=== PATIENT | female | born 1990 | race Caucasian/White ===

== ENCOUNTER 2016-09-06 11:20 | Emergency (ER) | payer OTHER ==
[~2016-09-06] VITALS: Ht 162.6 cm; Wt 57.0 kg
[2016-09-06 11:24] VITALS: TEMP 98.2; Ht 162.6 cm; Wt 57.0 kg
--- OUTSIDE RECORDS SUMMARY | 2016-09-06 11:25 | XMS REPORT ---
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 23331947 Problem Lumbago with sciatica, right side M54.41 Active 242312613 Problem Neuropathy of left lower extremity G57.92 Active 584583801 Problem Chronic pain syndrome G89.4 Active 589182628 Problem Hereditary and idiopathic peripheral neuropathy G60.9 Active 577645077 Problem Acute left-sided low back pain with left-sided sciatica M54.42 Active 757655425 Assessment Ganglion cyst of wrist, left M67.432 Jun, Active 272798480 Assessment Tobacco abuse counseling Z71.6 Jun, Active 855924561 Assessment Sore throat J02.9 Jun, Active 484978885 Problem Situational stress F43.9 Active 15996462 Problem Cervicalgia M54.2 Active 79215818 Assessment Tobacco abuse Z72.0 Jun, Active 717780957 Problem Severe episode of recurrent major depressive disorder, without psychotic features F33.2 Active 09065378 Assessment Acute non-recurrent maxillary sinusitis J01.00 Jun, Active 71108571 Problem Fatigue, unspecified type R53.83 Active 44591060 ALLERGIES Substance Reaction Event Type Date Status PredniSONE exhaustion Drug Allergy Jun, Active Doxycycline Hyclate vomiting Drug Allergy Jun, Active SOCIAL HISTORY No smoking Hx information available PLAN OF CARE Activity Details Pending Test *Mononucleosis Test, Qual 4 Weeks,Reason: VITAL SIGNS Temperature 98.5 degrees Fahrenheit 2016-06-24 Height 62.5 in 2016-06-24 Weight 128.4 lbs 2016-06-24 Oximetry 97% on room air % 2016-06-24 BMI 23.11 kg/m2 2016-06-24 Blood pressure systolic 98 mm Hg 2016-06-24 Blood pressure diastolic 68 mm Hg 2016-06-24 MEDICATIONS Medication Instructions Dosage Frequency Start Date End Date Duration Status Ibuprofen 200 MG Orally tid 4 tablets as needed 8h Active Methocarbamol 750 MG Orally BID 1-2 tablets 12h 21 Sep, 2015 30 days Active Fetzima 40 MG Orally Once a day 1 capsule 24h 30 days Active [place] 10-325 MG Orally every 6 hrs 1 tablet as needed 6h 14 May, 2016 30 days Active Medrol 4 MG Orally daily as directed 24h Jun, 6 days Active Zithromax Z-Marcello 250 MG Orally Once a day 2 tablets on the first day, then 1 tablet daily for 4 days 24h Jun, 5 day(s) Active Neurontin 100 MG Orally Three times a day 2 capsules qhs and 1 capsule bid 8h 15 Feb, 2016 30 days Active Percocet 10-325 MG Orally TID prn 1 tablet as needed Jun, 15 days Active RESULTS No Results PROCEDURES Procedure Date Ordered Related Diagnosis Body Site HETEROPHILE ANTIBODIES June 24, 2016 Office Visit, Est Pt., Level 3 June 24, 2016 BEHAV CHNG SMOKING < 10 MIN June 24, 2016 IMMUNIZATIONS No Known Immunizations
--- OUTSIDE RECORDS SUMMARY | 2016-09-06 11:25 | XMS REPORT ---
Author Fern Sandhu [facility] [employer] Address Unknown Phone Unavailable Care Team Providers Care Spring Repairer Helper Hand Name Role Phone Fern Villela CP Unavailable Allergies, Adverse Reactions, Alerts Substance Reaction Event Type PredniSONE exhaustion Drug Allergy Doxycycline Hyclate vomiting Drug Allergy Problems Problem Type Condition Code Onset Dates Condition Status Assessment Lumbago with sciatica, left side M54.42 Active Assessment Cigarette nicotine dependence without complication F17.210 Active Assessment Urinary tract infection, site unspecified N39.0 Active Assessment Encounter for immunization Z23 Active Assessment Other chronic pain G89.29 Active Problem Fatigue, unspecified type R53.83 Active Problem Severe episode of recurrent major depressive disorder, without psychotic features F33.2 Active Problem Lumbago with sciatica, left side M54.42 Active Assessment Painful urination R30.9 Active Assessment Tobacco use Z72.0 Active Problem Cervicalgia M54.2 Active Problem Situational stress F43.9 Active Medications Medication Code System Code Instructions Start Date End Date Status Dosage Methocarbamol [facility] [address]-40 750 MG Orally BID October 14, 2015 1-2 tablets Chantix Starting Month [place] [facility] [address]-12 0.5 MG X 11 & 1 MG X 42 Orally daily Dec 31, 2015 Dec 31, 2015 as directed [place] [facility] [address]-52 10-325 MG Orally TID prn Dec 31, 2015 1 tablet as needed Fetzima Titration [facility] [address]-71 20 & 40 MG Orally daily October 14, 2015 as directed Ibuprofen [facility] [address]-55 200 MG Orally tid 4 tablets as needed Bactrim DS [facility] [address]-00 800-160 MG Orally Twice a day Jan 22, 2016 1 tablet Procedures Procedure Coding System Code Date IMMUNIZATION ADMIN CPT-4 18511 Jan 22, 2016 FLU VACC 4 EMERY 3 YRS PLUS IM CPT-4 39021 Jan 22, 2016 URINALYSIS CPT-4 79667 Jan 22, 2016 Office Visit, Est Pt., Level 4 CPT-4 56230 Jan 22, 2016 URINE CULTURE/COLONY COUNT CPT-4 70583 Jan 22, 2016 Vital Signs Date/Time: Jan 22, 2016 Weight 130.4 lbs Height 62.5 in Temperature 98.1 F Pulse 80 /min Blood Pressure Diastolic 70 mm Hg Blood Pressure Systolic 104 mm Hg Weight Change 3.6 lb lbs BMI 23.47 Index Oximetry 99% on room air % Results Name Result Date Reference Range Unit Abnormality Flag *Urine Culture ----Urine Culture Source: Urine Collected: 01/21 11:07 [id number] Immunizations Vaccine Administration Date Fluzone Quadrivalent Jan 22, 2016 Summary Purpose eClinicalWorks Submission
--- OUTSIDE RECORDS SUMMARY | 2016-09-06 11:25 | XMS REPORT ---
Author Author Danial Andrade [employer] Address Unknown Phone Unavailable Care Team Providers Care Jointer Machine Operator Name Role Phone Danial Andrade Unavailable Allergies, Adverse Reactions, Alerts Substance Reaction Event Type PredniSONE exhaustion Drug Allergy Doxycycline Hyclate vomiting Drug Allergy Bactrim Info Not Available Drug Allergy Problems Problem Type Condition Code Onset Dates Condition Status Assessment Tobacco abuse counseling Z71.6 Active Assessment Acute maxillary sinusitis, recurrence not specified J01.00 Active Assessment Tobacco abuse Z72.0 Active Problem Other chronic pain G89.29 Active Problem Lumbago with sciatica, left side M54.42 Active Problem Cigarette nicotine dependence without complication F17.210 Active Problem Cervicalgia M54.2 Active Problem Situational stress F43.9 Active Problem Fatigue, unspecified type R53.83 Active Problem Severe episode of recurrent major depressive disorder, without psychotic features F33.2 Active Assessment Other chronic pain G89.29 Active Assessment Lumbago with sciatica, left side M54.42 Active Assessment Cough R05 Active Assessment Severe episode of recurrent major depressive disorder, without psychotic features F33.2 Active Assessment Cigarette nicotine dependence without complication F17.210 Active Medications Medication Code System Code Instructions Start Date End Date Status Dosage Ceftin [facility] [address]-50 250 MG Orally Twice a day Feb 13, 2016 1 tablet [place] [facility] [address]-43 10-325 MG Orally TID prn Feb 13, 2016 1 tablet as needed Fetzima [facility] [address]-78 40 MG Orally Once a day 1 capsule Mucinex [facility] [address]-80 600 MG Orally every 12 hrs 1 tablet as needed Cipro [facility] [address]-83 500 MG Orally Twice a day Jan 26, 2016 Feb 05, 2016 1 tablet Methocarbamol [facility] [address]-54 750 MG Orally BID October 14, 2015 1-2 tablets Ibuprofen [facility] [address]-16 200 MG Orally tid 4 tablets as needed Procedures Procedure Coding System Code Date Office Visit, Est Pt., Level 3 CPT-4 19644 Feb 13, 2016 Vital Signs Date/Time: Feb 13, 2016 Weight 130.8 lbs Height 62.5 in Temperature 98.8 F Pulse 82 /min Blood Pressure Diastolic 78 mm Hg Blood Pressure Systolic 104 mm Hg Weight Change .4 lb lbs BMI 23.54 Index Oximetry 98% on room air % Results No Known Results Summary Purpose eClinicalWorks Submission
--- OUTSIDE RECORDS SUMMARY | 2016-09-06 11:25 | XMS REPORT ---
Author Author Gustavo Lynch Organization [employer] Address Unknown Phone Unavailable Care Team Providers Care Zipper Machine Operator Name Role Phone Gustavo Lynch CP Unavailable Allergies No Known Allergies Problems No Known Problems Medications No Known Medications Results No Known Results Summary Purpose [employer]ClinicalWorks Submission
--- OUTSIDE RECORDS SUMMARY | 2016-09-06 11:25 | XMS REPORT ---
Author Author Dany Guzman Organization [employer] Address Unknown Phone Unavailable Care Team Providers Care Sider Name Role Phone Dany Guzman CP Unavailable Allergies No Known Allergies Problems Problem Type Condition Code Onset Dates Condition Status Problem Fatigue, unspecified type R53.83 Active Problem Severe episode of recurrent major depressive disorder, without psychotic features F33.2 Active Problem Lumbago with sciatica, left side M54.42 Active Assessment Urinary tract infection, site unspecified N39.0 Active Problem Cervicalgia M54.2 Active Problem Situational stress F43.9 Active Medications Medication Code System Code Instructions Start Date End Date Status Dosage Cipro [facility] [address]-47 500 MG Orally Twice a day Jan 26, 2016 1 tablet Results No Known Results Summary Purpose eClinicalWorks Submission
--- OUTSIDE RECORDS SUMMARY | 2016-09-06 11:25 | XMS REPORT | Continuity of Care Document ---
Author Author [facility] Organization [facility] Address Unknown Phone Unavailable Care Team Providers Care Form Grader Operator Name Role Phone MÓNICA CUMMINS M.D. Primary Care Physician [phone] Insurance Providers Payer Name Policy Number Subscriber Name Relationship [facility] [id number] Sindi Pressley 01 Self / Same As Patient Chief Complaint and Reason for Visit Chief Complaint Diarrhea Reason for Visit Diarrhea (acute) Gastroenteritis Dehydration Problems Medical Problems Problem Onset Date Status Rectal pain s/p recent hemorrhoidectomy Unknown Active Postoperative visit Unknown Active Abdominal pain Unknown Active Cervical pain (neck) Unknown Active Dehydration Unknown Active Medications Medication Dose Route Sig Days/Qty Instructions Order Date Discontinued Date Status Ciprofloxacin Hcl 500 Mg PO TWICE A DAY 10 Days 03/11/13 03/22/13 Discontinued Levomilnacipran HCl PO 02/13/14 Active Promethazine Hcl 25 Mg PO Every 8 hours as needed 12 Qty 02/13/14 Active Social History Social History Problem Response Recorded Date/Time Smoking Status Light Tobacco Smoker 02/13/2014 10:23am Query Response Start Date Stop Date Smoking Status Light Tobacco Smoker Hospital Discharge Instructions No hospital discharge instructions. Plan of Care Discharge Date 02/13/14 12:19pm Disposition 01 HOME, SELF-CARE Condition at Discharge Stable Instructions/Education Provided Dehydration (ED) Gastroenteritis (ED) Forms Provided Work Release Prescriptions See Medications Section Referrals MÓNICA CUMMINS M.D. Functional Status No functional status results. Allergies, Adverse Reactions, Alerts Allergen Type Severity Reaction Status Last Updated Acetaminophen Adverse Reaction Unknown Hives Active 07/14/13 Hydrocodone Adverse Reaction Unknown Hives Active 07/14/13 Tetracycline Adverse Reaction Unknown Nausea/Vomiting Active 07/03/13 Immunizations No immunization records. Vital Signs Acute Vital Signs Vital Response Date/Time Blood Pressure 109/71 mm Hg Blood Pressure Mean 79 mm Hg Blood Pressure Mean 84 mm Hg Temperature (Fahrenheit) 98.7 degrees F (96.0 - 99.9) Temperature (Calculated Celsius) 37.48779 degrees C Temperature Source Oral Temperature Source Oral Temp 98.2 degrees F (96.0 - 99.9) Temperature (Calculated Celsius) 36.47100 degrees C Pulse Pulse Rate (adult) 77 bpm (60 - 100) Pulse Rate (adult) 60 bpm (60 - 100) Pulse Rate: ED 78 bpm Respiratory Rate 18 breaths per minute (10 - 20) Respiratory Rate 8 bpm (10 - 20) Height (Feet) 5 ft Height (Inches) 4 in. Weight (Pounds) 145 lbs Ambulatory Vital Signs Vital Response Date/Time Height 5 ft 4 in 07/31/2013 2:37pm Weight 150 lbs 07/31/2013 2:37pm Temperature, Oral 98.3 degrees F 07/31/2013 2:37pm Blood Pressure, Sitting, Right Arm 121/81 mm Hg 07/31/2013 2:37pm Pulse Rate 92 bpm 07/31/2013 2:37pm Respiration Rate 15 bpm 07/31/2013 2:37pm Body Surface Area 1.77 m2 07/31/2013 2:37pm Body Mass Index 25.7 kg/m2 07/31/2013 2:37pm Results Test Source Date Result Interp. Ref. Range Comments Alanine Aminotransferase (ALT/SGPT) February 13, 2014 11:05am 13 U/L N 5- 40 Albumin February 13, 2014 11:05am 4.2 gm/dL N 3.2-5.0 Albumin/Globulin Ratio February 13, 2014 11:05am 1.4 N 1.4-2.4 Alkaline Phosphatase February 13, 2014 11:05am 38 U/L N 35-125 Amylase Level October 02, 2004 11:10am 32 U/L L 37-127 COMMENTS? ROOM 8 Anion Gap February 13, 2014 11:05am 9.9 N 6-13 Aspartate Amino Transf (AST/SGOT) February 13, 2014 11:05am 15 U/L N 5- 40 BUN/Creatinine Ratio February 13, 2014 11:05am 21.4 Band Neutrophils October 02, 2004 11:10am 8.0 % H 0-7 COMMENTS? ROOM 8 Basophils # (Auto) February 13, 2014 11:05am 0.0 K/uL N 0-0.2 Basophils (%) (Auto) February 13, 2014 11:05am 0.3 % N 0-1 Blood Urea Nitrogen February 13, 2014 11:05am 15 mg/dL N 8-25 Calcium Level February 13, 2014 11:05am 9.2 mg/dL N 8.2-10.6 Carbon Dioxide Level February 13, 2014 11:05am 24 mEq/L N 22-34 Chlamydia DNA Probe March 07, 2009 4:15pm See separate report COMMENTS ROOM 8 Chloride Level February 13, 2014 11:05am 109 mEq/L N 98-116 Creatinine February 13, 2014 11:05am 0.70 mg/dL L 0.9-1.6 Eosinophils # (Auto) February 13, 2014 11:05am 0.0 K/uL N 0-0.8 Eosinophils (%) (Auto) February 13, 2014 11:05am 0.3 % N 0-7.0 Globulin February 13, 2014 11:05am 2.9 gm/dL N 2.0-3.0 Glomerular Filtration Rate Calc February 13, 2014 11:05am > 60.00 mL/min MULTIPLY RESULT BY 1.210 IF THE PATIENT IS -AMERICANUnits are mL/ min/1.73 m2 > 60 Normal kidney function 30-59 Moderately decreased kidney function 15-29 Severely decreased kidney function <15 End-stage kidney failure Hematocrit February 13, 2014 11:05am 38.0 % N 38.0-47.0 Hemoglobin February 13, 2014 11:05am 13.3 g/dL N 12.0-16.0 Immature Blood Cells December 23, 2006 10:25pm 0.2 X10.e3/U N 0-0.4 COMMENTS?ROOM 8 Immature Granulocyte # (Auto) February 13, 2014 11:05am 0.02 K/uL N 0- 0.40 Immature Granulocyte % (Auto) February 13, 2014 11:05am 0.3 % N 0-0.5 Lipase July 02, 2013 11:13pm 43 U/L N 8-57 Lymphocytes # (Auto) February 13, 2014 11:05am 2.0 K/uL N 0.9-5.2 Lymphocytes (%) (Auto) February 13, 2014 11:05am 25.1 % N 16.0-44.0 Lymphocytes (Manual) October 02, 2004 11:10am 13.0 % L 18.0-53.0 COMMENTS ? ROOM 8 Mean Corpuscular Hemoglobin February 13, 2014 11:05am 32.2 pg N 26.0- 33.0 Mean Corpuscular Hemoglobin Concent February 13, 2014 11:05am 35.0 g/dL N 31.0-36.0 Mean Corpuscular Volume February 13, 2014 11:05am 92.0 fL N 82.0-100.0 Mean Platelet Volume February 13, 2014 11:05am 10.4 fL N 7.0-11.0 Monocytes # (Auto) February 13, 2014 11:05am 0.3 K/uL N 0.16-1.0 Monocytes (%) (Auto) February 13, 2014 11:05am 3.9 % N 2.0-9.0 Monocytes (Manual) October 02, 2004 11:10am 4.0 % N 2.0-13.0 COMMENTS? ROOM 8 Neutrophils October 02, 2004 11:10am 75.0 % H 36.0-73.5 COMMENTS? ROOM 8 Neutrophils # (Auto) February 13, 2014 11:05am 5.5 K/uL N 1.9-8.0 Neutrophils (%) (Auto) February 13, 2014 11:05am 70.1 % N 42.0-75.0 Nucleated Red Blood Cells # February 13, 2014 11:05am 0.00 K/uL N 0.0- 0.012 Nucleated Red Blood Cells % February 13, 2014 11:05am 0.0 /100WBC N 0-0 Platelet Count February 13, 2014 11:05am 185 K/uL N 130-400 Platelet Estimate October 02, 2004 11:10am Normal NORMAL COMMENTS? ROOM 8 Potassium Level February 13, 2014 11:05am 3.9 mEq/L N 3.5-5.1 RDW Standard Deviation February 13, 2014 11:05am 38.5 fL N 36.4-46.3 Random Glucose February 13, 2014 11:05am 97 mg/dL N 65-115 Red Blood Count February 13, 2014 11:05am 4.13 M/uL L 4.20-5.40 Red Cell Distribution Width February 13, 2014 11:05am 11.4 % L 11.5-14.5 Sodium Level February 13, 2014 11:05am 139 mEq/L N 133-145 Total Bilirubin February 13, 2014 11:05am 0.4 mg/dL N 0.1-1.3 Total Protein February 13, 2014 11:05am 7.1 gm/dL N 6.0-8.4 Urine Amorphous Sediment March 07, 2009 2:41pm None COMMENTS ROOM 8SOURCE: URINE, CLEAN CATCH HAS SPECIMEN BEEN OBTAINED/COLLECTED? Y Urine Appearance July 02, 2013 11:05pm Clear SOURCE: URINE, CLEAN CATCH Urine Bacteria March 11, 2013 6:12pm Trace /hpf H NONE COMMENT: 07SOURCE: URINE, CLEAN CATCH Urine Bilirubin July 02, 2013 11:05pm Negative NEGATIVE SOURCE: URINE, CLEAN CATCH Urine Casts March 07, 2009 2:41pm None /lpf NONE COMMENTS ROOM 8SOURCE: URINE, CLEAN CATCH HAS SPECIMEN BEEN OBTAINED/COLLECTED? Y Urine Color July 02, 2013 11:05pm Yellow SOURCE: URINE, CLEAN CATCH Urine Crystals March 07, 2009 2:41pm None /hpf NONE COMMENTS ROOM 8SOURCE: URINE, CLEAN CATCH HAS SPECIMEN BEEN OBTAINED/COLLECTED? Y Urine Epithelial Cells March 11, 2013 6:12pm Many /lpf COMMENT: 07SOURCE: URINE, CLEAN CATCH Urine Glucose (UA) July 02, 2013 11:05pm Negative NEGATIVE SOURCE: URINE, CLEAN CATCH Urine Human Chorionic Gonadotropin July 02, 2013 11:05pm Negative NEGATIVE Urine Ketones July 02, 2013 11:05pm Negative NEGATIVE SOURCE: URINE , CLEAN CATCH Urine Leukocyte Esterase July 02, 2013 11:05pm Negative NEGATIVE SOURCE: URINE, CLEAN CATCH Urine Mucus March 11, 2013 6:12pm 4+ /lpf NONE COMMENT: 07SOURCE: URINE, CLEAN CATCH Urine Nitrate July 02, 2013 11:05pm Negative NEGATIVE SOURCE: URINE , CLEAN CATCH Urine Occult Blood July 02, 2013 11:05pm Negative NEGATIVE SOURCE: URINE, CLEAN CATCH Urine Protein July 02, 2013 11:05pm Negative NEGATIVE SOURCE: URINE , CLEAN CATCH Urine RBC March 11, 2013 6:12pm 0-1 /hpf NONE COMMENT: 07SOURCE: URINE, CLEAN CATCH Urine Specific [place] July 02, 2013 11:05pm 1.025 1.005-1.030 SOURCE: URINE, CLEAN CATCH Urine Urobilinogen July 02, 2013 11:05pm 0.2 E.U./dL 0.2-1.0 SOURCE : URINE, CLEAN CATCH Urine WBC March 11, 2013 6:12pm 1-3 /hpf NONE COMMENT: 07SOURCE: URINE, CLEAN CATCH Urine WBC Clumps March 07, 2009 2:41pm Occasional NONE COMMENTS ROOM 8SOURCE: URINE, CLEAN CATCH HAS SPECIMEN BEEN OBTAINED/COLLECTED? Y Urine pH July 02, 2013 11:05pm 6.0 4.5-8.0 SOURCE: URINE, CLEAN CATCH White Blood Count February 13, 2014 11:05am 7.9 K/uL N 5.0-10.0 Wet Prep Vaginal March 07, 2009 4:00pm Group A Streptococcus Screen (JOSE) Throat July 16, 2007 9:06pm Urine Culture Urine,Clean Catch February 05, 2013 8:15pm Procedures Procedure Status Date Provider(s) REMOVE IN/EX HEM GROUPS 2+ completed 06/22/13 ROBBIE ADAM M.D. Hemorrhoidectomy (procedure) completed 06/22/13 ROBBIE ADAM M.D. THER/PROPH/DIAG IV INF INIT completed 07/02/13 MÓNICA HANKINS M.D. TX/PRO/DX INJ NEW DRUG ADDON completed 07/02/13 MÓNICA HANKINS M.D. THER/PROPH/DIAG INJ SC/IM completed 07/14/13 MÓNICA HANKINS M.D. THER/PROPH/DIAG INJ IV PUSH completed 10/29/13 VALERIA SOLIS M.D. TX/PRO/DX INJ NEW DRUG ADDON completed 10/29/13 VALERIA SOLIS M.D. TX/PRO/DX INJ NEW DRUG ADDON completed 10/29/13 VALERIA SOLIS M.D. THER/PROPH/DIAG INJ SC/IM completed 10/30/13 MÓNICA CUMMINS M.D. Encounters Encounter Location Date/Time Departed Emergency Room [facility] 02/13/14 10:24am Registered Clinic [facility] 10/30/13 11:55am Departed Emergency Room [facility] 10/29/13 8:57am Departed Emergency Room [facility] 10/02/13 5:59pm Office Visit ROBBIE ADAM 07/31/13 2:30pm Departed Emergency Room [facility] 07/14/13 12:14pm Office Visit ROBBIE ADAM 07/10/13 3:15pm Departed Emergency Room [facility] 07/02/13 10:39pm Office Visit ROBBIE ADAM 06/29/13 1:30pm Departed Emergency Room [facility] 06/27/13 3:45pm Departed Emergency Room Pool [facility] 03/11/13 5:20pm Recent Diagnosis Diarrhea (acute) Gastroenteritis
--- OUTSIDE RECORDS SUMMARY | 2016-09-06 11:25 | XMS REPORT ---
Author Author Deyanira Kebede Organization [employer] Address Unknown Phone Unavailable Care Team Providers Care Park Warden Name Role Phone Randolphflora Deyanira CP Unavailable Allergies, Adverse Reactions, Alerts Substance Reaction Event Type Doxycycline Hyclate vomiting Drug Allergy Problems Problem Type Condition Code Onset Dates Condition Status Assessment Encounter for gynecological examination (general) (routine) without abnormal findings Z01.419 Active Assessment Cervicalgia M54.2 Active Assessment Encounter for screening for lipoid disorders Z13.220 Active Assessment Encounter for screening for infections with a predominantly sexual mode of transmission Z11.3 Active Assessment Hypothyroidism, unspecified E03.9 Active Assessment Other fatigue R53.83 Active Medications Medication Code System Code Instructions Start Date End Date Status Dosage Zyrtec-D Allergy & Congestion [facility] [address] 5-120 MG Orally Twice a day Dec 26, 2014 1 tablet Nasonex [facility] [address]-88 50 MCG/ACT Nasally Once a day Dec 26, 2014 2 sprays in each nostril Tramadol HCl [facility] [address]-59 50 MG Orally QD October 10, 2014 1 tablet as needed Omeprazole [facility] [address]-00 20 MG Orally Once a day Apr 12, 2014 1 capsule [place] [facility] [address]-12 7.5-325 MG Orally every 6-8 hrs PRN 1 tablet as needed Fetzima Titration [facility] [address]-88 20 & 40 MG Orally QD October 31, 2014 as directed Procedures Procedure Coding System Code Date [id number] YEARS CPT-4 81873 Apr 17, 2015 DRAW FEE CPT-4 50210 Apr 17, 2015 Vital Signs Date/Time: Apr 17, 2015 Blood Pressure Diastolic 70 mm Hg Blood Pressure Systolic 122 mm Hg Temperature 98.0 F BMI 23.00 Index Weight 134 lbs Height 64 in Results Name Result Date Reference Range Unit Abnormality Flag Venipuncture Summary Purpose eClinicalWorks Submission
--- OUTSIDE RECORDS SUMMARY | 2016-09-06 11:25 | XMS REPORT ---
Author Author Dany Guzman [facility] eClinical[employer] Address Unknown Phone Unavailable Care Team Providers Care Special Investigator Name Role Phone Dany Guzman CP Unavailable Allergies No Known Allergies Problems Problem Type Condition Code Onset Dates Condition Status Problem Severe episode of recurrent major depressive disorder, without psychotic features F33.2 Active Problem Cervicalgia M54.2 Active Problem Fatigue, unspecified type R53.83 Active Problem Situational stress F43.9 Active Medications No Known Medications Results No Known Results Summary Purpose [employer] Submission
--- OUTSIDE RECORDS SUMMARY | 2016-09-06 11:25 | XMS REPORT ---
Author Author Danial Andrade [employer] Address Unknown Phone Unavailable Care Team Providers Care Battery Inspector Name Role Phone Danial Andrade CP Unavailable Allergies, Adverse Reactions, Alerts Substance Reaction Event Type PredniSONE exhaustion Drug Allergy Doxycycline Hyclate vomiting Drug Allergy Bactrim Info Not Available Drug Allergy Problems Problem Type Condition Code Onset Dates Condition Status Problem Situational stress F43.9 Active Problem Severe episode of recurrent major depressive disorder, without psychotic features F33.2 Active Problem Cervicalgia M54.2 Active Problem Neuropathy of left lower extremity G57.92 Active Problem Chronic pain syndrome G89.4 Active Problem Acute left-sided low back pain with left-sided sciatica M54.42 Active Problem Lumbago with sciatica, left side M54.42 Active Problem Fatigue, unspecified type R53.83 Active Problem Cigarette nicotine dependence without complication F17.210 Active Problem Other chronic pain G89.29 Active Assessment Tobacco abuse counseling Z71.6 Active Assessment Tobacco abuse Z72.0 Active Assessment Neuropathy of left lower extremity G57.92 Active Assessment Radicular pain of left lower extremity M54.10 Active Assessment Chronic pain syndrome G89.4 Active Assessment Cigarette nicotine dependence without complication F17.210 Active Assessment Cervicalgia M54.2 Active Assessment Acute left-sided low back pain with left-sided sciatica M54.42 Active Medications Medication Code System Code Instructions Start Date End Date Status Dosage Mucinex [facility] [address]-48 600 MG Orally every 12 hrs Mar 09, 2016 1 tablet as needed [place] [facility] [address]-42 10-325 MG Orally Q6 hrs prn Mar 09, 2016 1 tablet as needed Ibuprofen [facility] [address]-27 200 MG Orally tid 4 tablets as needed Neurontin [facility] [address]-39 100 MG Orally QHS Mar 09, 2016 1 capsule Methocarbamol [facility] [address]-03 750 MG Orally BID October 14, 2015 1-2 tablets Ceftin [facility] [address]-66 250 MG Orally Twice a day Feb 13, 2016 Feb 20, 2016 1 tablet Fetzima [facility] [address]-04 40 MG Orally Once a day 1 capsule Medrol [facility] [address]-29 4 MG Orally daily Mar 09, 2016 as directed Procedures Procedure Coding System Code Date Office Visit, Ori Pt., Level 3 CPT-4 95363 Mar 09, 2016 Vital Signs Date/Time: Mar 09, 2016 Weight 126.6 lbs Height 62.5 in Temperature 98.0 F Oximetry 98% RA/rest % Pulse 85 /min Blood Pressure Diastolic 60 mm Hg Blood Pressure Systolic 102 mm Hg BMI 22.78 Index Results No Known Results Summary Purpose eClinicalWorks Submission
--- OUTSIDE RECORDS SUMMARY | 2016-09-06 11:25 | XMS REPORT ---
Author Author Deyanira Kebede Organization [employer] Address Unknown Phone Unavailable Care Team Providers Care [employer] Spanish Teacher Name Role Phone Deyanira Kebede CP Unavailable Allergies, Adverse Reactions, Alerts Substance Reaction Event Type Doxycycline Hyclate vomiting Drug Allergy Problems Problem Type Condition ICD-9 Code Onset Dates Condition Status Assessment Cervicalgia 723.1 Active Assessment Unspecified hypothyroidism 244.9 Active Medications Medication Code System Code Instructions Start Date End Date Status Dosage Ibuprofen [facility] [address]-58 800 MG Orally Three times a day Mar 12, 2014 1 tablet Omeprazole [facility] [address]-53 20 MG Orally Once a day Apr 12, 2014 1 capsule [place] [facility] [address]-15 7.5-325 MG Orally every 6 hrs 1 tablet as needed Neurontin [facility] [address]-90 100 MG Orally QHS Dec 18, 2013 1 capsule Zanaflex [facility] [address]-99 4 MG Orally BID 1 tablet as needed Procedures Procedure Coding System Code Date ESTAB PATIENTLEVEL III CPT-4 67006 July 30, 2014 BP SCR PRFRM RCMDD DEFIND SCR INTVL CPT-4 G8783 July 30, 2014 DRAW FEE CPT-4 38338 July 30, 2014 Vital Signs Date/Time: July 30, 2014 Blood Pressure Diastolic 70 mm Hg Blood Pressure Systolic 110 mm Hg Temperature 97.5 F BMI 24.89 Index Weight 145 lbs Height 64 in Results No Known Results Summary Purpose eClinicalWorks Submission
--- OUTSIDE RECORDS SUMMARY | 2016-09-06 11:25 | XMS REPORT ---
Author Author Fern Villela Organization [employer] Address Unknown Phone Unavailable Care Team Providers Care Figurine Maker Name Role Phone Fern Villela CP Unavailable Allergies No Known Allergies Problems Problem Type Condition Code Onset Dates Condition Status Problem Fatigue, unspecified type R53.83 Active Problem Severe episode of recurrent major depressive disorder, without psychotic features F33.2 Active Problem Lumbago with sciatica, left side M54.42 Active Problem Cervicalgia M54.2 Active Problem Situational stress F43.9 Active Medications No Known Medications Results No Known Results Summary Purpose eClinicalWorks Submission
--- OUTSIDE RECORDS SUMMARY | 2016-09-06 11:26 | XMS REPORT ---
Author Author Dany Guzman Organization [employer] Address [address] [place] [address] Care Team Providers Care Spray Dyer Name Role Phone Dany Guzman Unavailable [phone] PROBLEMS Type Condition ICD9-CM Code [id number] Code Onset Dates Condition Status SNOMED Code Problem Lumbago with sciatica, left side M54.42 Active 177699156 Problem Cigarette nicotine dependence without complication F17.210 Active 25513282 Problem Other chronic pain G89.29 Active 51380506 Problem Situational stress F43.9 Active 30393737 Problem Cervicalgia M54.2 Active 88864200 Problem Severe episode of recurrent major depressive disorder, without psychotic features F33.2 Active 12093052 Problem Fatigue, unspecified type R53.83 Active 33851237 Problem 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
--- OUTSIDE RECORDS SUMMARY | 2016-09-06 11:26 | XMS REPORT ---
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 20991079 Problem Lumbago with sciatica, right side M54.41 Active 054024906 Problem Neuropathy of left lower extremity G57.92 Active 103863262 Problem Chronic pain syndrome G89.4 Active 237546440 Problem Hereditary and idiopathic peripheral neuropathy G60.9 Active 503406653 Problem Acute left-sided low back pain with left-sided sciatica M54.42 Active 050540811 Problem Situational stress F43.9 Active 28535723 Problem Cervicalgia M54.2 Active 91357902 Assessment Low back pain M54.5 Jun, Active 415289556 Problem Severe episode of recurrent major depressive disorder, without psychotic features F33.2 Active 81489637 Assessment Chronic pain syndrome G89.4 Jun, Active 949385577 Problem Fatigue, unspecified type R53.83 Active 05976249 ALLERGIES Substance Reaction Event Type Date Status PredniSONE exhaustion Drug Allergy Jun, Active Doxycycline Hyclate vomiting Drug Allergy Jun, Active SOCIAL HISTORY No smoking Hx information available PLAN OF CARE VITAL SIGNS Temperature 98.5 degrees Fahrenheit 2016-07-16 Height 62.5 in 2016-07-16 Weight 128.0 lbs 2016-07-16 Oximetry 99%RA % 2016-07-16 BMI 23.04 kg/m2 2016-07-16 Blood pressure systolic 120 mm Hg 2016-07-16 Blood pressure diastolic 60 mm Hg 2016-07-16 MEDICATIONS Medication Instructions Dosage Frequency Start Date End Date Duration Status Methocarbamol 750 MG Orally BID 1-2 tablets 12h Sep, 30 days Active Neurontin 100 MG Orally Three times a day 2 capsules qhs and 1 capsule bid 8h Feb, 30 days Active Ibuprofen 800 MG Orally Three times a day 1 tablet 8h Jun, 30 days Active Percocet 10-325 MG Orally TID prn 1 tablet as needed Jun, 15 days Active [place] 10-325 MG Orally every 6 hrs 1 tablet as needed 6h Jun, 30 days Active Fetzima 40 MG Orally Once a day 1 capsule 24h 30 days Active RESULTS No Results PROCEDURES Procedure Date Ordered Related Diagnosis Body Site Office Visit, Est Pt., Level 3 July 16, 2016 IMMUNIZATIONS No Known Immunizations
--- OUTSIDE RECORDS SUMMARY | 2016-09-06 11:26 | XMS REPORT ---
Author Author Deyanira Kebede Organization [employer] Address Unknown Phone Unavailable Care Team Providers Care Live Games Dealer Name Role Phone Deyanira Kebede CP Unavailable Allergies, Adverse Reactions, Alerts Substance Reaction Event Type Doxycycline Hyclate vomiting Drug Allergy Problems Problem Type Condition ICD-9 Code Onset Dates Condition Status Assessment Acute maxillary sinusitis 461.0 Active Medications Medication Code System Code Instructions Start Date End Date Status Dosage Neurontin [facility] [address]-84 100 MG Orally QHS Dec 18, 2013 1 capsule Promethazine-Codeine [facility] [address]-74 6.25-10 MG/5ML Orally every 6 hrs November 12, 2014 5 ml as needed Zithromax Z-Marcello [facility] [address]-41 250 MG Orally Once a day November 12, 2014 2 tablets on the first day, then 1 tablet daily for 4 days Medrol (Marcello) [facility] [address]-05 4 MG Orally QD October 31, 2014 as directed Tramadol HCl [facility] [address]-09 50 MG Orally QD October 10, 2014 1 tablet as needed [place] [facility] [address]-30 7.5-325 MG Orally QHS 1 tablet as needed Fetzima Titration [facility] [address]-75 20 & 40 MG Orally QD October 31, 2014 as directed Omeprazole [facility] [address]-81 20 MG Orally Once a day Apr 12, 2014 1 capsule Baclofen [facility] [address]-77 10 MG Orally BID August 29, 2014 1 tablet with food or milk Procedures Procedure Coding System Code Date STREPTOCOCCUS, GROUP A, DETECTION CPT-4 52216 November 12, 2014 ESTAB PATIENTLEVEL III CPT-4 40555 November 12, 2014 Vital Signs Date/Time: November 12, 2014 Blood Pressure Diastolic 70 mm Hg Blood Pressure Systolic 110 mm Hg Temperature 97.2 F BMI 24.37 Index Weight 142 lbs Height 64 in Results Name Result Date Reference Range Unit Abnormality Flag Rapid Strep Summary Purpose eClinicalWorks Submission
--- OUTSIDE RECORDS SUMMARY | 2016-09-06 11:26 | XMS REPORT | Continuity of Care Document ---
Author Author [facility] Organization [facility] Address Unknown Phone Unavailable Care Team Providers Care Latin Professor Name Role Phone MÓNICA CUMMINS M.D. Primary Care Physician [phone] Insurance Providers Payer Name Policy Number Subscriber Name Relationship [facility] [id number] Sindi Pressley 01 Self / Same As Patient Chief Complaint and Reason for Visit Chief Complaint Neck Pain Reason for Visit [id number] Problems Medical Problems Problem Onset Date Status Rectal pain s/p recent hemorrhoidectomy Unknown Active Postoperative visit Unknown Active Abdominal pain Unknown Active Cervical pain (neck) Unknown Active Medications Medication Dose Route Sig Days/Qty Instructions Order Date Discontinued Date Status Ciprofloxacin Hcl 500 Mg PO TWICE A DAY 10 Days 03/11/13 03/22/13 Discontinued Hydrocodone-Acetaminophen 1-2 Tab PO Q4-6H PRN 10 Qty for pain 10/02/13 Active Social History Social History Problem Response Recorded Date/Time Smoking Status Light Tobacco Smoker 10/02/2013 6:03pm Query Response Start Date Stop Date Smoking Status Light Tobacco Smoker Hospital Discharge Instructions No hospital discharge instructions. Plan of Care Discharge Date 10/02/13 6:53pm Disposition 01 HOME, SELF-CARE Condition at Discharge Stable Prescriptions See Medications Section Referrals MÓNICA CUMMINS M.D. Functional Status No functional status results. Allergies, Adverse Reactions, Alerts Allergen Type Severity Reaction Status Last Updated Acetaminophen Adverse Reaction Unknown Hives Active 07/14/13 Hydrocodone Adverse Reaction Unknown Hives Active 07/14/13 Tetracycline Adverse Reaction Unknown Nausea/Vomiting Active 07/03/13 Immunizations No immunization records. Vital Signs Acute Vital Signs Vital Response Date/Time Blood Pressure / 10/02/2013 6:53pm Blood Pressure Mean 80 mm Hg 10/02/2013 6:53pm Pulse 10/02/2013 6:53pm Pulse Rate: ED 98 bpm 10/02/2013 6:53pm Respiratory Rate 16 breaths per minute (10 - 20) 10/02/2013 6:53pm Ambulatory Vital Signs Vital Response Date/Time Height [...] Source Date Result Interp. Ref. Range Comments Wet Prep Vaginal March 07, 2009 4:00pm Group A Streptococcus Screen (JOSE) Throat July 16, 2007 9:06pm Urine Culture Urine,Clean Catch February 05, 2013 8:15pm Procedures Procedure Status Date Provider(s) THER/PROPH/DIAG INJ SC/IM completed 02/05/13 JANETH JOY M.D. THER/PROPH/DIAG INJ SC/IM completed 02/05/13 JANETH JOY M.D. REMOVE IN/EX HEM GROUPS 2+ completed 06/22/13 ROBBIE ADAM M.D. Hemorrhoidectomy (procedure) completed 06/22/13 ROBBIE ADAM M.D. THER/PROPH/DIAG IV INF INIT completed 07/02/13 MÓNICA HANKINS M.D. TX/PRO/DX INJ NEW DRUG ADDON completed 07/02/13 MÓNICA HANKINS M.D. THER/PROPH/DIAG INJ SC/IM completed 07/14/13 MÓNICA HANKINS M.D. Encounters Encounter Location Date/Time Departed Emergency Room [facility] 10/02/13 5:59pm Office Visit ROBBIE ADAM 07/31/13 2:30pm Departed Emergency Room [facility] 07/14/13 12:14pm Office Visit ROBBIE ADAM 07/10/13 3:15pm Departed Emergency Room [facility] 07/02/13 10:39pm Office Visit ROBBIE ADAM 06/29/13 1:30pm Departed Emergency Room [facility] 06/27/13 3:45pm Departed Emergency Room [facility] 03/11/13 5:20pm Departed Emergency Room [facility] 02/05/13 7:41pm Recent Diagnosis
--- OUTSIDE RECORDS SUMMARY | 2016-09-06 11:26 | XMS REPORT ---
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 Assessment Cervicalgia M54.2 Active Assessment Situational stress F43.9 Active Assessment Other chronic pain G89.29 Active Assessment Tobacco abuse disorder Z72.0 Active Problem Fatigue, unspecified type R53.83 Active Problem Severe episode of recurrent major depressive disorder, without psychotic features F33.2 Active Problem Lumbago with sciatica, left side M54.42 Active Assessment Lumbago with sciatica, left side M54.42 Active Assessment Fatigue, unspecified type R53.83 Active Problem Cervicalgia M54.2 Active Problem Situational stress F43.9 Active Medications Medication Code System Code Instructions Start Date End Date Status Dosage PredniSONE [facility] [address]-69 20 MG Orally Once a day Dec 31, 2015 2 tablets x 1 week then 1 tablet x 1 week Ibuprofen [facility] [address]-14 200 MG Orally tid 4 tablets as needed Fetzima Titration [facility] [address]-89 20 & 40 MG Orally daily October 14, 2015 as directed [place] [facility] [address]-69 10-325 MG Orally TID prn Dec 31, 2015 1 tablet as needed Medrol (Marcello) NDC 0 4 mg Orally daily Dec 01, 2015 Dec 05, 2015 as directed Chantix Starting Month [place] [facility] [address]-51 0.5 MG X 11 & 1 MG X 42 Orally daily Dec 31, 2015 as directed Methocarbamol [facility] [address]-26 750 MG Orally BID October 14, 2015 1-2 tablets Procedures Procedure Coding System Code Date COMPREHEN METABOLIC PANEL CPT-4 01006 Dec 31, 2015 ASSAY THYROID STIM HORMONE CPT-4 64635 Dec 31, 2015 COMPLETE CBC W/AUTO DIFF WBC CPT-4 74512 Dec 31, 2015 Office Visit, Est Pt., Level 4 CPT-4 11187 Dec 31, 2015 X-RAY EXAM OF LOWER SPINE CPT-4 95958 Dec 31, 2015 Vital Signs Date/Time: Dec 31, 2015 Weight 126.8 lbs Height 62.5 in Temperature 98.2 F Pulse 84 /min Blood Pressure Diastolic 78 mm Hg Blood Pressure Systolic 100 mm Hg Weight Change -3. lb lbs BMI 22.82 Index Oximetry 98%ra % Results No Known Results Summary Purpose eClinicalWorks Submission
--- OUTSIDE RECORDS SUMMARY | 2016-09-06 11:26 | XMS REPORT ---
Author Author Britney Gonzalez [employer] Address Unknown Phone Unavailable Care Team Providers Care Facility Service Associate Name Role Phone Britney Gonzalez CP Unavailable Allergies, Adverse Reactions, Alerts Substance Reaction Event Type Doxycycline Hyclate vomiting Drug Allergy Problems Problem Type Condition ICD-9 Code Onset Dates Condition Status Assessment Acute pharyngitis 462 Active Assessment Nausea with vomiting 787.01 Active Assessment Acute sinusitis, unspecified 461.9 Active Medications Medication Code System Code Instructions Start Date End Date Status Dosage Zofran ODT [facility] [address]-12 4 MG Orally every 8 hrs prn Apr 12, 2014 Active 1 tablet on the tongue Fetzima [facility] [address]-99 20 MG Orally Once a day Jan 24, 2014 Active 1 capsule Zyrtec Allergy [facility] [address]-03 10 MG Orally Once a day November 07, 2013 Active 1 tablet as needed Omeprazole [facility] [address]-66 20 MG Orally Once a day Apr 12, 2014 Active 1 capsule Ibuprofen [facility] [address]-02 800 MG Orally Three times a day Mar 12, 2014 Active 1 tablet Fetzima [facility] [address]-50 40 MG Orally Once a day Jan 24, 2014 Active 1 capsule [place] [facility] [address]-58 7.5-325 MG Orally every 6 hrs Mar 12, 2014 Active 1 tablet as needed Neurontin [facility] [address]-88 100 MG Orally QHS Dec 18, 2013 Active 1 capsule Ciprofloxacin HCl [facility] [address]-99 500 MG Orally Twice a day Apr 12, 2014 Active 1 tablet Procedures Procedure Coding System Code Date IAADIADOO INF CPT-4 88465 Apr 12, 2014 URINE DIP CPT-4 91330 Apr 12, 2014 STREPTOCOCCUS, GROUP A, DETECTION CPT-4 48818 Apr 12, 2014 FLU IMMUNIZE ORDER/ADMIN CPT-4 G8482 Apr 12, 2014 ESTAB PATIENTLEVEL III CPT-4 35416 Apr 12, 2014 BP SCR PRFRM RCMDD DEFIND SCR INTVL CPT-4 G8783 Apr 12, 2014 PT TOBACCO SCREEN RCVD TLK CPT-4 4004F Apr 12, 2014 Vital Signs Date/Time: Apr 12, 2014 Blood Pressure Systolic 110 mm Hg Cardiac Monitoring Heart Rate 107 /min Temperature 98.8 F BMI 25.66 Index Weight 149.5 lbs Height 64 in Blood Pressure Diastolic 78 mm Hg Oximetry 98 % Results No Known Results Summary Purpose eClinicalWorks Submission
--- OUTSIDE RECORDS SUMMARY | 2016-09-06 11:26 | XMS REPORT ---
Author Author Dany Guzman [facility] [employer] Address Unknown Phone Unavailable Care Team Providers Care Gear Keeper Name Role Phone Dany Guzman CP Unavailable Allergies No Known Allergies Problems Problem Type Condition Code Onset Dates Condition Status Problem Severe episode of recurrent major depressive disorder, without psychotic features F33.2 Active Problem Cervicalgia M54.2 Active Problem Fatigue, unspecified type R53.83 Active Problem Situational stress F43.9 Active Assessment Cervicalgia M54.2 Active Medications Medication Code System Code Instructions Start Date End Date Status Dosage Corea [facility] [address]-81 7.5-325 MG Orally BID prn October 14, 2015 1 tablet as needed Results No Known Results Summary Purpose eClinicalWorks Submission
--- OUTSIDE RECORDS SUMMARY | 2016-09-06 11:26 | XMS REPORT ---
Author Author Danial Andrade [employer] Address Unknown Phone Unavailable Care Team Providers Care Developer Support Engineer Name Role Phone Danial Andrade CP Unavailable Allergies, Adverse Reactions, Alerts Substance Reaction Event Type Doxycycline Hyclate vomiting Drug Allergy Problems Problem Type Condition ICD-9 Code Onset Dates Condition Status Assessment Cervicalgia 723.1 Active Assessment Other malaise and fatigue 780.79 Active Assessment Adjustment disorder with mixed anxiety and depressed mood 309.28 Active Medications Medication Code System Code Instructions Start Date End Date Status Dosage Omeprazole [facility] [address]-44 20 MG Orally Once a day Apr 12, 2014 1 capsule Baclofen [facility] [address]-17 10 MG Orally BID August 29, 2014 1 tablet with food or milk Pristiq [facility] [address]-16 50 MG Orally Once a day October 10, 2014 1 tablet [place] [facility] [address]-49 7.5-325 MG Orally QHS 1 tablet as needed Neurontin [facility] [address]-71 100 MG Orally QHS Dec 18, 2013 1 capsule Zorvolex [facility] [address]-87 35 MG Orally Three times a day 1 capsule Zorvolex [facility] [address]-55 35 MG Orally Three times a day August 29, 2014 1 capsule Tramadol HCl [facility] [address]-66 50 MG Orally QD October 10, 2014 1 tablet as needed Baclofen [facility] [address]-51 10 MG Orally BID 1 tablet with food or milk Procedures Procedure Coding System Code Date ESTAB PATIENTLEVEL III CPT-4 68843 October 10, 2014 Vital Signs Date/Time: October 10, 2014 Blood Pressure Diastolic 72 mm Hg Blood Pressure Systolic 122 mm Hg Temperature 97.0 F BMI 24.03 Index Weight 140 lbs Height 64 in Results No Known Results Summary Purpose eClinicalWorks Submission
--- OUTSIDE RECORDS SUMMARY | 2016-09-06 11:26 | XMS REPORT ---
Author Author Danial Andrade [employer] Address Unknown Phone Unavailable Care Team Providers Care Retail Business Analyst Name Role Phone Danial Andrade CP Unavailable [...] Problem Fatigue, unspecified type R53.83 Active Problem Hereditary and idiopathic peripheral neuropathy G60.9 Active Problem Acute left-sided low back pain with left-sided sciatica M54.42 Active Problem Lumbago with sciatica, right side M54.41 Active Problem Cigarette nicotine dependence without complication F17.210 Active Problem Other chronic pain G89.29 Active Problem Neuropathy of left lower extremity G57.92 Active Problem Chronic pain syndrome G89.4 Active Assessment Hereditary and idiopathic peripheral neuropathy G60.9 Active Assessment Radiculopathy of leg M54.10 Active Assessment Tobacco abuse counseling Z71.6 Active Assessment Tobacco abuse Z72.0 Active Assessment Cigarette nicotine dependence without complication F17.210 Active Assessment Lumbago with sciatica, left side M54.42 Active Assessment Other chronic pain G89.29 Active Problem Situational stress F43.9 Active Assessment Lumbago with sciatica, right side M54.41 Active Problem Cervicalgia M54.2 Active Medications Medication Code System Code Instructions Start Date End Date Status Dosage Ibuprofen [facility] [address]-94 200 MG Orally tid 4 tablets as needed Percocet [facility] [address]-20 10-325 MG Orally every 6 hrs prn Mar 26, 2016 1 tablet as needed Methocarbamol [facility] [address]-27 750 MG Orally BID October 14, 2015 1-2 tablets Neurontin [facility] [address]-54 100 MG Orally Three times a day Mar 09, 2016 2 capsules qhs and 1 capsule bid Fetzima [facility] [address]-05 40 MG Orally Once a day 1 capsule Procedures Procedure Coding System Code Date THER/PROPH/DIAG INJ, SC/IM CPT-4 41769 Mar 26, 2016 Toradol (Ketorolac) CPT-4 J1885 Mar 26, 2016 Depo-Medrol (Methylprednisolone Acetate) CPT-4 J1030 Mar 26, 2016 Office Visit, Est Pt., Level 4 CPT-4 27481 Mar 26, 2016 Vital Signs Date/Time: Mar 26, 2016 Weight 125.8 lbs Height 62.5 in Temperature 97.8 F Pulse 84 /min Blood Pressure Diastolic 82 mm Hg Blood Pressure Systolic 122 mm Hg Weight Change -.8 lb lbs BMI 22.64 Index Oximetry 97% on room air % Results No Known Results Summary Purpose eClinicalWorks Submission
--- OUTSIDE RECORDS SUMMARY | 2016-09-06 11:26 | XMS REPORT ---
Author Author Deyanira Kebede Organization [employer] Address Unknown Phone Unavailable Care Team Providers Care Paving Foreman Name Role Phone Deyanira Kebede CP Unavailable Allergies, Adverse Reactions, Alerts Substance Reaction Event Type Doxycycline Hyclate vomiting Drug Allergy Problems Problem Type Condition ICD-9 Code Onset Dates Condition Status Assessment Cervicalgia 723.1 Active Assessment Acute sinusitis, unspecified 461.9 Active Medications Medication Code System Code Instructions Start Date End Date Status Dosage Baclofen [facility] [address]-07 10 MG Orally BID August 29, 2014 1 tablet with food or milk Neurontin [facility] [address]-45 100 MG Orally QHS Dec 18, 2013 1 capsule Omeprazole [facility] [address]-99 20 MG Orally Once a day Apr 12, 2014 1 capsule Fetzima Titration [facility] [address]-56 20 & 40 MG Orally QD October 31, 2014 as directed Promethazine-Codeine [facility] [address]-37 6.25-10 MG/5ML Orally every 6 hrs November 12, 2014 5 ml as needed Zithromax Z-Marcello [facility] [address]-18 250 MG Orally Once a day November 12, 2014 2 tablets on the first day, then 1 tablet daily for 4 days Medrol (Marcello) [facility] [address]-27 4 MG Orally QD October 31, 2014 as directed [place] [facility] [address]-75 7.5-325 MG Orally QHS 1 tablet as needed Tramadol HCl [facility] [address]-41 50 MG Orally QD October 10, 2014 1 tablet as needed Procedures Procedure Coding System Code Date ESTAB PATIENTLEVEL III CPT-4 99117 Nov 26, 2014 DEPO MEDROL 80MG CPT-4 J1040 Nov 26, 2014 Vital Signs Date/Time: Nov 26, 2014 Blood Pressure Diastolic 70 mm Hg Blood Pressure Systolic 102 mm Hg Temperature 97.3 F BMI 23.69 Index Weight 138 lbs Height 64 in Results No Known Results Summary Purpose eClinicalWorks Submission
--- OUTSIDE RECORDS SUMMARY | 2016-09-06 11:26 | XMS REPORT ---
Author Author Danial Andrade e[employer] Address Unknown Phone Unavailable Care Team Providers Care Boating Safety Officer Name Role Phone Danial Andrade CP Unavailable Allergies, Adverse Reactions, Alerts Substance Reaction Event Type Doxycycline Hyclate vomiting Drug Allergy Problems Problem Type Condition Code Onset Dates Condition Status Assessment Cervicalgia 723.1 Active Assessment Major depressive disorder, recurrent episode, severe, without mention of psychotic behavior 296.33 Active Medications Medication Code System Code Instructions Start Date End Date Status Dosage [place] [facility] [address]-12 7.5-325 MG Orally every 6 hrs 1 tablet as needed Baclofen [facility] [address]-91 10 MG Orally BID August 29, 2014 1 tablet with food or milk Zorvolex [facility] [address]-18 35 MG Orally Three times a day August 29, 2014 1 capsule Neurontin [facility] [address]-27 100 MG Orally QHS Dec 18, 2013 1 capsule Zorvolex [facility] [address]-89 35 MG Orally Three times a day 1 capsule Baclofen [facility] [address]-82 10 MG Orally BID 1 tablet with food or milk Fetzima [facility] [address]-04 20 MG Orally Once a day September 19, 2014 1 capsule Omeprazole [facility] [address]-54 20 MG Orally Once a day Apr 12, 2014 1 capsule Procedures Procedure Coding System Code Date ESTAB PATIENTLEVEL III CPT-4 49195 September 19, 2014 Vital Signs Date/Time: September 19, 2014 Blood Pressure Diastolic 70 mm Hg Blood Pressure Systolic 130 mm Hg Temperature 97.0 F BMI 24.20 Index Weight 141 lbs Height 64 in Results No Known Results Summary Purpose eClinicalWorks Submission
--- OUTSIDE RECORDS SUMMARY | 2016-09-06 11:26 | XMS REPORT ---
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 47196185 Problem Lumbago with sciatica, right side M54.41 Active 277019746 Problem Neuropathy of left lower extremity G57.92 Active 689431444 Problem Chronic pain syndrome G89.4 Active 352111485 Problem Hereditary and idiopathic peripheral neuropathy G60.9 Active 687946606 Problem Acute left-sided low back pain with left-sided sciatica M54.42 Active 811884856 Assessment Status post surgical removal of ganglion cyst Z98.890 Jul, Active 986456076 Assessment Tobacco abuse counseling Z71.6 Jul, Active 850655886 Problem Situational stress F43.9 Active 47848384 Problem Cervicalgia M54.2 Active 74541685 Assessment Tobacco abuse Z72.0 Jul, Active 285381783 Problem Severe episode of recurrent major depressive disorder, without psychotic features F33.2 Active 42867855 Assessment Left wrist pain M25.532 Jul, Active 591326087100933 Problem Fatigue, unspecified type R53.83 Active 51853163 ALLERGIES Substance Reaction Event Type Date Status PredniSONE exhaustion Drug Allergy Jul, Active Doxycycline Hyclate vomiting Drug Allergy Jul, Active SOCIAL HISTORY No smoking Hx information available PLAN OF CARE VITAL SIGNS Temperature 98.0 degrees Fahrenheit 2016-08-09 Height 62.5 in 2016-08-09 Weight 128.0 lbs 2016-08-09 Oximetry 99% on room air % 2016-08-09 BMI 23.04 kg/m2 2016-08-09 Blood pressure systolic 102 mm Hg 2016-08-09 Blood pressure diastolic 60 mm Hg 2016-08-09 MEDICATIONS Medication Instructions Dosage Frequency Start Date End Date Duration Status Fetzima 40 MG Orally Once a day 1 capsule 24h 30 days Active Methocarbamol 750 MG Orally BID 1-2 tablets 12h 21 Sep, 2015 30 days Active [place] 10-325 MG Orally every 6 hrs 1 tablet as needed 6h 12 Jul, 2016 30 days Active Neurontin 100 MG Orally Three times a day 2 capsules qhs and 1 capsule bid 8h 15 Feb, 2016 30 days Active Ibuprofen 800 MG Orally Three times a day 1 tablet 8h 16 Jun, 2016 30 days Active Percocet 10-325 MG Orally TID prn 1 tablet as needed Jul, 15 days Active Wellbutrin SR 100 MG Orally Once a day 1 tablet in the morning 24h Jul, 30 days Active RESULTS No Results PROCEDURES Procedure Date Ordered Related Diagnosis Body Site Office Visit, Est Pt., Level 3 August 09, 2016 BEHAV CHNG SMOKING < 10 MIN August 09, 2016 IMMUNIZATIONS No Known Immunizations
--- OUTSIDE RECORDS SUMMARY | 2016-09-06 11:26 | XMS REPORT ---
Author Author Gustavo Lynch Organization [employer] Address Unknown Phone Unavailable Care Team Providers Care Roll Press Operator Name Role Phone Gustavo Lynch CP Unavailable Allergies No Known Allergies Problems No Known Problems Medications Medication Code System Code Instructions Start Date End Date Status Dosage [place] [facility] [address]-92 7.5-325 MG Orally every 6 hrs Mar 12, 2014 Active 1 tablet as needed PredniSONE [facility] [address]-01 20 MG Orally Once a day Apr 30, 2014 Active 1 tablet with food or milk Results No Known Results Summary Purpose eClinicalWorks Submission
--- OUTSIDE RECORDS SUMMARY | 2016-09-06 11:26 | XMS REPORT ---
Author Author Danial Andrade [employer] Address Unknown Phone Unavailable Care Team Providers Care Hot Air Furnace Installer And Repairer Name Role Phone Danial Andrade Unavailable Allergies No Known Allergies Problems No Known Problems Medications Medication Code System Code Instructions Start Date End Date Status Dosage [facility] [address]-88 7.5-325 MG Orally every 6 hrs Mar 12, 2014 Active 1 tablet as needed Results No Known Results Summary Purpose eClinicalWorks Submission
--- OUTSIDE RECORDS SUMMARY | 2016-09-06 11:26 | XMS REPORT | Continuity of Care Document ---
Author Author [facility] Organization [facility] Address Unknown Phone Unavailable Allergies Medications Problems Procedures Code Description Performed By Performed On 68.41 LAPAROSCOPIC TOTAL ABDOMINAL HYSTERECTOMY Daryl Gee DO 11/16/2012 Results Test Result Range UR TEST - 12/12/11 18:22 UR TEST NEGATIVE NEGATIVE URINALYSIS WITH MICROSCOPIC - 12/12/11 18:22 UA LEUKOCYTE ESTERASE DIPSTICK NEGATIVE NEGATIVE UA NITRITE DIPSTICK NEGATIVE NEGATIVE UA PROTEIN DIPSTICK NEGATIVE NEGATIVE UA GLUCOSE DIPSTICK NEGATIVE NEGATIVE UA KETONE DIPSTICK NEGATIVE NEGATIVE UA UROBILINOGEN DIPSTICK NORMAL NORMAL UA BILIRUBIN DIPSTICK NEGATIVE NEGATIVE UA BLOOD DIPSTICK NEGATIVE NEGATIVE UA BACTERIA 1+ NEGATIVE UA EPITHELIAL CELLS 3+ epi/hpf 0 - 1+ UA RBC 0-3 rbc/hpf 0 - 3 UA VOLUME FOR EXAM 12.0 mL (12mL STD) UA WBC 0-1 wbc/hpf 0 - 5 UA SPECIFIC GRAVITY 1.021 1.015-1.025 UR PH 7.0 5.0-7.0 TEST, SERUM - 01/07/12 05:40 TEST, SERUM NEGATIVE NEGATIVE UR TEST - 08/15/12 09:10 UR TEST NEGATIVE NEGATIVE URINALYSIS, ROUTINE - 08/15/12 09:10 UA LEUKOCYTE ESTERASE DIPSTICK NEGATIVE NEGATIVE UA NITRITE DIPSTICK NEGATIVE NEGATIVE UA PROTEIN DIPSTICK TRACE NEGATIVE UA GLUCOSE DIPSTICK NEGATIVE NEGATIVE UA KETONE DIPSTICK NEGATIVE NEGATIVE UA UROBILINOGEN DIPSTICK NORMAL NORMAL UA BILIRUBIN DIPSTICK NEGATIVE NEGATIVE UA BLOOD DIPSTICK 4+ NEGATIVE UA BACTERIA 2+ NEGATIVE UA EPITHELIAL CELLS 2+ epi/hpf 0 - 1+ UA MUCUS 3+ NEG TO 1+ UA RBC 20-50 rbc/hpf 0 - 3 UA VOLUME FOR EXAM 12.0 mL (12mL STD) UA WBC 0 wbc/hpf 0 - 5 UA SPECIFIC GRAVITY 1.027 1.015-1.025 UR PH 7.0 5.0-7.0 CHEM/HEM PROFILE-BEDSIDE - 08/15/12 09:51 POTASSIUM 3.9 mmol/L 3.5-5.3 METHOD Bedside ANION GAP 15 mmol/L 10-20 METHOD Bedside GLUCOSE 82 mg/dL 70-99 BLOOD UREA NITROGEN 14 mg/dL 7-20 CREATININE 0.7 mg/dL 0.6-1.0 HEMOGLOBIN 13.6 gm/dL 12.0-16.0 HEMATOCRIT 40.0 % 37.0-47.0 SODIUM 139 mmol/L 135-148 CHLORIDE 104 mmol/L 98-110 CARBON DIOXIDE 25 mmol/L 21-32 CALCIUM IONIZED 5.1 mg/dL 4.5-5.3 UR TEST - 11/15/12 19:01 UR TEST NEGATIVE NEGATIVE URINALYSIS, ROUTINE - 11/15/12 19:01 UA LEUKOCYTE ESTERASE DIPSTICK NEGATIVE NEGATIVE UA NITRITE DIPSTICK NEGATIVE NEGATIVE UA PROTEIN DIPSTICK NEGATIVE NEGATIVE UA GLUCOSE DIPSTICK NEGATIVE NEGATIVE UA KETONE DIPSTICK NEGATIVE NEGATIVE UA UROBILINOGEN DIPSTICK NORMAL NORMAL UA BILIRUBIN DIPSTICK POSITIVE NEGATIVE UA BLOOD DIPSTICK NEGATIVE NEGATIVE UA SPECIFIC GRAVITY 1.025 1.015-1.025 UR PH 5.0 5.0-7.0 CHEM/HEM PROFILE-BEDSIDE - 11/16/12 07:06 POTASSIUM 3.5 mmol/L 3.5-5.3 METHOD Bedside ANION GAP 18 mmol/L 10-20 METHOD Bedside GLUCOSE 111 mg/dL 70-99 BLOOD UREA NITROGEN 16 mg/dL 7-20 CREATININE 0.7 mg/dL 0.6-1.0 HEMOGLOBIN 13.3 gm/dL 12.0-16.0 HEMATOCRIT 39.0 % 37.0-47.0 SODIUM 142 mmol/L 135-148 CHLORIDE 109 mmol/L 98-110 CARBON DIOXIDE 20 mmol/L 21-32 CALCIUM IONIZED 4.7 mg/dL 4.5-5.3 CBC W/DIFF - 11/16/12 07:11 GRANULOCYTE # 8.3 k/cumm 2.0-9.0 GRANULOCYTE % 72 % 50-75 LYMPHOCYTE # 2.6 k/cumm 1.0-4.0 LYMPHOCYTE % 22 % 20-30 MEAN CELL HGB 31.5 pg 27.0-33.0 MEAN CELL HGB CONCENTRATION 34.1 g/dL 32.0-37.0 MEAN CELL VOLUME 92.4 fl 80.0-100.0 MONOCYTE # 0.7 k/cumm 0.1-1.0 MONOCYTE % 6 % 4-6 RED BLOOD CELL 4.45 m/cumm 4.00-6.00 RED CELL DISTRIBUTION WIDTH 11.7 % 11.0- 15.6 WHITE BLOOD CELL 11.6 k/cumm 5.0-10.0 HEMOGLOBIN 14.0 gm/dL 12.0-16.0 HEMATOCRIT 41.1 % 37.0-47.0 PLATELET COUNT 218 k/cumm 150-400 [place] - 11/16/12 07:11 Uncategorized GRAM STAIN - CHLAMYDIA DNA BY PCR - 11/16/12 07:11 Uncategorized HEPATIC FUNCTION PANEL - 11/16/12 07:11 BILI UNCONJUGATED 0.3 mg/dL 0.0-0.7 AST/SGOT 14 Units/L 10-37 ALT/SGPT 21 Units/L < 66 TOTAL PROTEIN 7.2 gm/dL 6.4-8.2 ALBUMIN 4.1 gm/dL 3.4-5.0 BILI TOTAL 0.4 mg/dL 0.0-1.0 ALKALINE PHOSPHATASE TOTAL 63 Units/L 50- 136 BILI CONJUGATED 0.1 mg/dL 0.0-0.3 HCG QUANT INTACT - 11/16/12 07:11 HCG QUANT INTACT < 1 mIU/mL TEST, SERUM - 11/16/12 13:32 TEST, SERUM NEGATIVE NEGATIVE UR DRUGS OF ABUSE SCREEN - 11/16/12 15:50 UR AMPHETAMINES SCREEN NEG (<1000 ng/mL) NEGATIVE UR BARBITURATE SCREEN NEG (< 200 ng/mL) NEGATIVE DRUGS OF ABUSE SCREEN COMMENT UR OPIATES SCREEN POS (> 300 ng/mL) NEGATIVE UR PHENCYCLIDINE (PCP) SCREEN NEG (< 25 ng/mL) NEGATIVE UR CANNABINOIDS (THC) SCREEN NEG (< 50 ng/mL) NEGATIVE UR COCAINE METABOLITE SCREEN NEG (< 300 ng/mL) NEGATIVE UR METHADONE SCREEN NEG (< 300 ng/mL) NEGATIVE UR BENZODIAZEPINE SCREEN NEG (< 200 ng/mL) NEGATIVE HGB HCT - 11/17/12 14:16 MEAN CELL VOLUME 93.1 fl 80.0-100.0 HEMOGLOBIN 11.8 gm/dL 12.0-16.0 HEMATOCRIT 35.1 % 37.0-47.0 METABOLIC PANEL, BASIC - 11/17/12 14:16 POTASSIUM 3.5 mmol/L 3.5-5.3 EST GFR (MDRD) > 60 mL/min > 59 ANION GAP 9 mmol/L 5-15 EST CrCl (CG) > 60 mL/min > 59 GLUCOSE 87 mg/dL 70-99 CALCIUM 8.0 mg/dL 8.5-10.1 BLOOD UREA NITROGEN 7 mg/dL 7-20 CREATININE 0.8 mg/dL 0.6-1.0 SODIUM 140 mmol/L 135-148 CHLORIDE 106 mmol/L 98-110 CARBON DIOXIDE 25 mmol/L 21-32 UR TEST - 03/10/13 14:10 UR TEST NEGATIVE NEGATIVE URINALYSIS WITH MICROSCOPIC - 03/10/13 14:10 UA LEUKOCYTE ESTERASE DIPSTICK NEGATIVE NEGATIVE UA NITRITE DIPSTICK NEGATIVE NEGATIVE UA PROTEIN DIPSTICK NEGATIVE NEGATIVE UA GLUCOSE DIPSTICK NEGATIVE NEGATIVE UA KETONE DIPSTICK NEGATIVE NEGATIVE UA UROBILINOGEN DIPSTICK NORMAL NORMAL UA BILIRUBIN DIPSTICK NEGATIVE NEGATIVE UA BLOOD DIPSTICK NEGATIVE NEGATIVE UA AMORPHOUS SEDIMENT 2+ UA BACTERIA 2+ NEGATIVE UA EPITHELIAL CELLS 2+ epi/hpf 0 - 1+ UA RBC 0 rbc/hpf 0 - 3 UA VOLUME FOR EXAM 12.0 mL (12mL STD) UA WBC 0 wbc/hpf 0 - 5 UA SPECIFIC GRAVITY 1.015 1.015-1.025 UR PH 7.0 5.0-7.0 Encounters ACCT No. Visit Date/Time Discharge Status Pt. Type Provider Facility Loc./Unit Complaint [id number] 03/10/2013 13:24:00 2012 15:18:00 DIS Emergency Tristan Patel DO [facility] W.EDW [id number] 11/16/2012 05:09:00 2012 17:10:00 DIS Outpatient Daryl Gee DO [facility] W.4WH [id number] 11/15/2012 17:33:00 2012 21:25:00 DIS Emergency Antoinette ARANDA, Sheron [facility] W.EDN [id number] 08/15/2012 08:25:00 2012 10:43:00 DIS Emergency Ernesto ARANDA, Brett Thayer [facility] W.EDS [id number] 05/17/2012 22:43:00 2012 00:38:00 DIS Emergency Potter DO, Jacobo [facility] W.EDN [id number] 01/07/2012 05:06:00 2011 11:30:00 DIS Outpatient [facility] W.OPRA [id number] 01/03/2012 07:07:00 2011 07:07:00 DIS Outpatient [facility] W.POA [id number] 12/12/2011 16:44:00 2011 19:38:00 DIS Emergency Vidal ARANDA, Diego Apodaca [facility] W.EDS
--- OUTSIDE RECORDS SUMMARY | 2016-09-06 11:26 | XMS REPORT ---
Author Author Deyanira Kebede Organization [employer] Address Unknown Phone Unavailable Care Team Providers Care Congressional Assistant Name Role Phone Deyanira Kebede CP Unavailable Allergies, Adverse Reactions, Alerts Substance Reaction Event Type Doxycycline Hyclate vomiting Drug Allergy Problems Problem Type Condition Code Onset Dates Condition Status Assessment Acute sinusitis, unspecified 461.9 Active Medications Medication Code System Code Instructions Start Date End Date Status Dosage Ibuprofen [facility] [address]-05 800 MG Orally Three times a day Mar 12, [address] [facility] [address]-40 100 MG Orally QHS Dec 18, 2013 1 capsule [place] [facility] [address]-27 7.5-325 MG Orally every 6 hrs 1 tablet as needed Zithromax Z-Marcello [facility] [address]-45 250 MG Orally Once a day 2 tablets on the first day, then 1 tablet daily for [address] [facility] [address]-67 20 MG Orally Once a day Apr 12, [address] [facility] [address]-36 4 MG Orally BID 1 tablet as needed Promethazine-Codeine [facility] [address]-80 6.25-10 MG/5ML Orally every 6 hrs 5 ml as needed Procedures Procedure Coding System Code Date BP SCR PRFRM RCMDD DEFIND SCR INTVL CPT-4 G8783 August 08, 2014 ESTAB PATIENTLEVEL III CPT-4 94791 August 08, 2014 Vital Signs Date/Time: August 08, 2014 Blood Pressure Diastolic 72 mm Hg Blood Pressure Systolic 118 mm Hg Temperature 98.6 F BMI 24.54 Index Weight 143 lbs Height 64 in Results No Known Results Summary Purpose eClinicalWorks Submission
--- OUTSIDE RECORDS SUMMARY | 2016-09-06 11:26 | XMS REPORT ---
Author Author Deyanira Kebede Organization [employer] Address Unknown Phone Unavailable Care Team Providers Care Art Glass Designer Name Role Phone Deyanira Kebede CP Unavailable Allergies, Adverse Reactions, Alerts Substance Reaction Event Type Doxycycline Hyclate vomiting Drug Allergy Problems Problem Type Condition ICD-9 Code Onset Dates Condition Status Assessment Cervicalgia 723.1 Active Assessment Acute upper respiratory infections of unspecified site 465.9 Active Medications Medication Code System Code Instructions Start Date End Date Status Dosage Nasonex [facility][NOTE 3] [address]-23 50 MCG/ACT Nasally Once a day Dec 26, 2014 2 sprays in each nostril Symsonia [facility][NOTE 3] [address]-50 7.5-325 MG Orally every 6-8 hrs PRN 1 tablet as needed Tramadol HCl [facility][NOTE 3] [address]-02 50 MG Orally QD October 10, 2014 1 tablet as needed Baclofen [facility][NOTE 3] [address]-69 10 MG Orally BID August 29, 2014 1 tablet with food or milk Promethazine-Codeine [facility][NOTE 3] [address]-59 6.25-10 MG/5ML Orally every 6 hrs November 12, 2014 5 ml as needed Neurontin [facility][NOTE 3] [address]-73 100 MG Orally QHS Dec 18, 2013 1 capsule Omeprazole [facility][NOTE 3] [address]-71 20 MG Orally Once a day Apr 12, 2014 1 capsule Fetzima Titration [facility][NOTE 3] [address]-46 20 & 40 MG Orally QD October 31, 2014 as directed Medrol (Marcello) [facility][NOTE 3] [address]-82 4 MG Orally QD October 31, 2014 as directed Zyrtec-D Allergy & Congestion [facility][NOTE 3] 95805-97145 5-120 MG Orally Twice a day Dec 26, 2014 1 tablet Zithromax Z-Marcello [facility][NOTE 3] [address]-66 250 MG Orally Once a day November 12, 2014 2 tablets on the first day, then 1 tablet daily for 4 days Procedures Procedure Coding System Code Date ESTAB PATIENTLEVEL III CPT-4 79435 Dec 26, 2014 Vital Signs Date/Time: Dec 26, 2014 Blood Pressure Diastolic 70 mm Hg Blood Pressure Systolic 110 mm Hg Temperature 97.2 F BMI 23.00 Index Weight 134 lbs Height 64 in Results No Known Results Summary Purpose [employer]Works Submission
--- OUTSIDE RECORDS SUMMARY | 2016-09-06 11:27 | XMS REPORT ---
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 78568501 Problem Lumbago with sciatica, right side M54.41 Active 269830691 Problem Neuropathy of left lower extremity G57.92 Active 195687431 Problem Chronic pain syndrome G89.4 Active 719505347 Problem Hereditary and idiopathic peripheral neuropathy G60.9 Active 451991106 Problem Acute left-sided low back pain with left-sided sciatica M54.42 Active 517248688 Assessment Tobacco abuse counseling Z71.6 Jun, Active 922302786 Problem Situational stress F43.9 Active 51875351 Problem Cervicalgia M54.2 Active 42792239 Assessment Tobacco abuse Z72.0 Jun, Active 554414147 Problem Severe episode of recurrent major depressive disorder, without psychotic features F33.2 Active 31089363 Assessment Lumbago with sciatica, left side M54.42 Jun, Active 553772574 Problem Fatigue, unspecified type R53.83 Active 77029458 ALLERGIES Substance Reaction Event Type Date Status PredniSONE exhaustion Drug Allergy Jun, Active Doxycycline Hyclate vomiting Drug Allergy Jun, Active SOCIAL HISTORY No smoking Hx information available PLAN OF CARE VITAL SIGNS Temperature 98.4 degrees Fahrenheit 2016-07-08 Height 62.5 in 2016-07-08 Weight 127.4 lbs 2016-07-08 Oximetry 98% on room air % 2016-07-08 BMI 22.93 kg/m2 2016-07-08 Blood pressure systolic 90 mm Hg 2016-07-08 Blood pressure diastolic 62 mm Hg 2016-07-08 MEDICATIONS Medication Instructions Dosage Frequency Start Date End Date Duration Status Eucha 10-325 MG Orally every 6 hrs 1 tablet as needed 6h Jun, 30 days Active Percocet 10-325 MG Orally TID prn 1 tablet as needed Jun, 15 days Active Methocarbamol 750 MG Orally BID 1-2 tablets 12h Sep, 30 days Active Ibuprofen 800 MG Orally Three times a day 1 tablet 8h Jun, 30 days Active Neurontin 100 MG Orally Three times a day 2 capsules qhs and 1 capsule bid 8h Feb, 30 days Active Fetzima 40 MG Orally Once a day 1 capsule 24h 30 days Active RESULTS No Results PROCEDURES Procedure Date Ordered Related Diagnosis Body Site Office Visit, Est Pt., Level 3 July 08, 2016 BEHAV CHNG SMOKING < 10 MIN July 08, 2016 IMMUNIZATIONS No Known Immunizations
--- OUTSIDE RECORDS SUMMARY | 2016-09-06 11:27 | XMS REPORT ---
Author Author Dany Guzman [facility] eClinicalWorks Address Unknown Phone Unavailable Care Team Providers Care Director Of Corporate Sales Name Role Phone Dany Guzman CP Unavailable [...] Instructions Start Date End Date Status Dosage [place] [facility] [address]-44 7.5-325 MG Orally every 6 hrs October 14, 2015 1 to 2 tablet as needed Results No Known Results Summary Purpose eClinicalWorks Submission
--- OUTSIDE RECORDS SUMMARY | 2016-09-06 11:27 | XMS REPORT ---
Author Author Deyanira Kebede Organization [employer] Address Unknown Phone Unavailable Care Team Providers Care Blocker Automatic Name Role Phone Deyanira Kebede CP Unavailable Allergies, Adverse Reactions, Alerts Substance Reaction Event Type Doxycycline Hyclate vomiting Drug Allergy Problems Problem Type Condition Code Onset Dates Condition Status Assessment Cervicalgia M54.2 Active Assessment Encounter for immunization Z23 Active Medications Medication Code System Code Instructions Start Date End Date Status Dosage Zyrtec-D Allergy & Congestion [facility] [address]782 5-120 MG Orally Twice a day Dec 26, 2014 1 tablet Fetzima Titration [facility] [address]-00 20 & 40 MG Orally QD October 31, 2014 as directed Nasonex [facility] [address]-75 50 MCG/ACT Nasally Once a day Dec 26, 2014 2 sprays in each nostril Zithromax Z-Marcello [facility] [address]-75 250 MG Orally Once a day 2 tablets on the first day, then 1 tablet daily for 4 days Tramadol HCl [facility] [address]-17 50 MG Orally QD October 10, 2014 1 tablet as needed Omeprazole [facility] [address]-53 20 MG Orally Once a day Apr 12, 2014 1 capsule [place] [facility] [address]-65 7.5-325 MG Orally every 6-8 hrs PRN 1 tablet as needed Promethazine-Codeine [facility] [address]-39 6.25-10 MG/5ML Orally every 6 hrs 5 ml as needed Procedures Procedure Coding System Code Date ESTAB PATIENTLEVEL III CPT-4 54042 Mar 17, 2015 FLU IMMUNIZE ORDER/ADMIN CPT-4 G8482 Mar 17, 2015 Influenza 3yr and up CPT-4 70383 Mar 17, 2015 Vital Signs Date/Time: Mar 17, 2015 Blood Pressure Systolic 114 mm Hg Cardiac Monitoring Heart Rate 74 /min Temperature 98.1 F BMI 23.34 Index Weight 136 lbs Height 64 in Blood Pressure Diastolic 70 mm Hg Oximetry 98 % Results No Known Results Immunizations Vaccine Administration Date Influenza 3yr and up Mar 17, 2015 Summary Purpose eClinicalWorks Submission
--- OUTSIDE RECORDS SUMMARY | 2016-09-06 11:27 | XMS REPORT ---
Author Author Deyanira Kebede Organization [employer] Address Unknown Phone Unavailable Care Team Providers Care Auto Body Repairer Name Role Phone Deyanira Kebede CP Unavailable Allergies, Adverse Reactions, Alerts Substance Reaction Event Type Doxycycline Hyclate vomiting Drug Allergy Problems Problem Type Condition ICD-9 Code Onset Dates Condition Status Assessment Acute sinusitis, unspecified 461.9 Active Assessment Cervicalgia 723.1 Active Medications Medication Code System Code Instructions Start Date End Date Status Dosage Zofran ODT [facility] [address]-70 4 MG Orally every 8 hrs prn Apr 12, 2014 1 tablet on the tongue Zyrtec Allergy [facility] [address]-39 10 MG Orally Once a day November 07, 2013 1 tablet as needed Omeprazole [facility] [address]-61 20 MG Orally Once a day Apr 12, 2014 1 capsule PredniSONE [facility] [address]-52 20 MG Orally Once a day Apr 30, 2014 1 tablet with food or milk Zithromax Z-Marcello [facility] [address]-91 250 MG Orally Once a day Jun 11, 2014 2 tablets on the first day, then 1 tablet daily for 4 days Fetzima [facility] [address]-38 40 MG Orally Once a day Jan 24, 2014 1 capsule Neurontin [facility] [address]-19 100 MG Orally QHS Dec 18, 2013 1 capsule Promethazine-Codeine [facility] [address]-19 6.25-10 MG/5ML Orally every 6 hrs Jun 11, 2014 5 ml as needed [place] [facility] [address]-51 7.5-325 MG Orally every 6 hrs Mar 12, 2014 1 tablet as needed Zanaflex [facility] [address]-13 4 MG Orally BID October 30, 2013 1 tablet as needed Fetzima [facility] [address]-04 20 MG Orally Once a day Jan 24, 2014 1 capsule Ciprofloxacin HCl [facility] [address]-42 500 MG Orally Twice a day Apr 12, 2014 1 tablet Ibuprofen [facility] [address]-94 800 MG Orally Three times a day Mar 12, 2014 1 tablet Procedures Procedure Coding System Code Date BP SCR PRFRM RCMDD DEFIND SCR INTVL CPT-4 G8783 Jun 11, 2014 ESTAB PATIENTLEVEL III CPT-4 89775 Jun 11, 2014 Vital Signs Date/Time: Jun 11, 2014 Blood Pressure Diastolic 60 mm Hg Blood Pressure Systolic 122 mm Hg Temperature 97.3 F BMI 25.40 Index Weight 148 lbs Height 64 in Results No Known Results Summary Purpose eClinicalWorks Submission
--- OUTSIDE RECORDS SUMMARY | 2016-09-06 11:27 | XMS REPORT ---
Author Author Deyanira Kebede Organization [employer] Address Unknown Phone Unavailable Care Team Providers Care Spar Cap Beveler Name Role Phone Deyanira Kebede CP Unavailable Allergies, Adverse Reactions, Alerts Substance Reaction Event Type Doxycycline Hyclate vomiting Drug Allergy Problems Problem Type Condition Code Onset Dates Condition Status Assessment Cervicalgia M54.2 Active Medications Medication Code System Code Instructions Start Date End Date Status Dosage Flagyl [facility] [address]-48 500 MG Orally Twice a day Apr 28, 2015 1 tablet [place] [facility] [address]-89 7.5-325 MG Orally every 6-8 hrs PRN 1 tablet as needed Nasonex [facility] [address]-70 50 MCG/ACT Nasally Once a day Dec 26, 2014 2 sprays in each nostril Omeprazole [facility] [address]-94 20 MG Orally Once a day Apr 12, 2014 1 capsule Procedures Procedure Coding System Code Date FLU IMMUNIZE ORDER/ADMIN CPT-4 G8482 May 08, 2015 ESTAB PATIENTLEVEL III CPT-4 46871 May 08, 2015 Vital Signs Date/Time: May 08, 2015 Blood Pressure Systolic 128 mm Hg Cardiac Monitoring Heart Rate 73 /min Temperature 97.8 F BMI 23.51 Index Weight 137 lbs Height 64 in Blood Pressure Diastolic 70 mm Hg Respiratory Rate 98 /min Results No Known Results Summary Purpose eClinicalWorks Submission
--- OUTSIDE RECORDS SUMMARY | 2016-09-06 11:27 | XMS REPORT ---
Author Author Danial Andrade [employer] Address Unknown Phone Unavailable Care Team Providers Care Assistant Product Manager Name Role Phone Danial Andrade CP Unavailable Allergies, Adverse Reactions, Alerts Substance Reaction Event Type Doxycycline Hyclate vomiting Drug Allergy Problems Problem Type Condition ICD-9 Code Onset Dates Condition Status Assessment Cervicalgia 723.1 Active Assessment Adjustment disorder with mixed anxiety and depressed mood 309.28 Active Assessment Unspecified disorder of synovium, tendon, and bursa 727.9 Active Assessment Lateral epicondylitis of elbow 726.32 Active Medications Medication Code System Code Instructions Start Date End Date Status Dosage Neurontin [facility] [address]-94 100 MG Orally QHS Dec 18, 2013 1 capsule Medrol (Marcello) [facility] [address]-57 4 MG Orally QD October 31, 2014 as directed Baclofen [facility] [address]-02 10 MG Orally BID August 29, 2014 1 tablet with food or milk Tramadol HCl [facility] [address]-03 50 MG Orally QD October 10, 2014 1 tablet as needed [place] [facility] [address]-45 7.5-325 MG Orally QHS 1 tablet as needed Fetzima Titration [facility] [address]-25 20 & 40 MG Orally QD October 31, 2014 as directed Omeprazole [facility] [address]-24 20 MG Orally Once a day Apr 12, 2014 1 capsule Procedures Procedure Coding System Code Date TENNIS ELBOW SUPPORT CPT-4 A4465 October 31, 2014 ESTAB PATIENTLEVEL III CPT-4 71429 October 31, 2014 Vital Signs Date/Time: October 31, 2014 Blood Pressure Diastolic 70 mm Hg Blood Pressure Systolic 140 mm Hg Temperature 97.2 F BMI 23.86 Index Weight 139 lbs Height 64 in Results No Known Results Summary Purpose eClinicalWorks Submission
--- OUTSIDE RECORDS SUMMARY | 2016-09-06 11:27 | XMS REPORT ---
Author Author Dany Guzman Organization [employer] Address [address] [place] [address] Care Team Providers Care Project Control Analyst Name Role Phone Dany Guzman Unavailable [phone] PROBLEMS Type Condition ICD9-CM Code [id number] Code Onset Dates Condition Status SNOMED Code Problem Lumbago with sciatica, left side M54.42 Active 878258796 Problem Cigarette nicotine dependence without complication F17.210 Active 16913045 Problem Other chronic pain G89.29 Active 53727818 Problem Situational stress F43.9 Active 80178994 Problem Cervicalgia M54.2 Active 82844679 Problem Severe episode of recurrent major depressive disorder, without psychotic features F33.2 Active 14051974 Problem Fatigue, unspecified type R53.83 Active 77611504 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
--- OUTSIDE RECORDS SUMMARY | 2016-09-06 11:27 | XMS REPORT ---
Author Author Deyanira Kebede Organization [employer] Address Unknown Phone Unavailable Care Team Providers Care Hand Laster Name Role Phone Deyanira Kebede CP Unavailable Allergies, Adverse Reactions, Alerts Substance Reaction Event Type Doxycycline Hyclate vomiting Drug Allergy Problems Problem Type Condition Code Onset Dates Condition Status Assessment Acute sinusitis, unspecified J01.90 Active Assessment Cervicalgia M54.2 Active Medications Medication Code System Code Instructions Start Date End Date Status Dosage Tramadol HCl [facility] [address]-77 50 MG Orally QD October 10, 2014 1 tablet as needed Promethazine-Codeine [facility] [address]-18 6.25-10 MG/5ML Orally every 6 hrs 5 ml as needed Omeprazole [facility] [address]-23 20 MG Orally Once a day Apr 12, 2014 1 capsule Fetzima Titration [facility] [address]-33 20 & 40 MG Orally QD October 31, 2014 as directed Nasonex [facility] [address]-21 50 MCG/ACT Nasally Once a day Dec 26, 2014 2 sprays in each nostril Zyrtec-D Allergy & Congestion [facility] [address] 5-120 MG Orally Twice a day Dec 26, 2014 1 tablet Zithromax Z-Marcello [facility] [address]-63 250 MG Orally Once a day 2 tablets on the first day, then 1 tablet daily for 4 days [place] [facility] [address]-16 7.5-325 MG Orally every 6-8 hrs PRN 1 tablet as needed Procedures Procedure Coding System Code Date FLU IMMUNIZE ORDER/ADMIN CPT-4 G8482 Feb 18, 2015 ESTAB PATIENTLEVEL III CPT-4 85465 Feb 18, 2015 Vital Signs Date/Time: Feb 18, 2015 Blood Pressure Diastolic 78 mm Hg Blood Pressure Systolic 110 mm Hg Temperature 97.7 F BMI 23.34 Index Weight 136 lbs Height 64 in Results No Known Results Summary Purpose eClinicalWorks Submission
--- OUTSIDE RECORDS SUMMARY | 2016-09-06 11:27 | XMS REPORT ---
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 20685379 Problem Lumbago with sciatica, right side M54.41 Active 292547590 Problem Neuropathy of left lower extremity G57.92 Active 870630750 Problem Chronic pain syndrome G89.4 Active 865759145 Problem Hereditary and idiopathic peripheral neuropathy G60.9 Active 683448167 Problem Acute left-sided low back pain with left-sided sciatica M54.42 Active 971441970 Assessment Ganglion cyst of wrist, left M67.432 Jul, Active 745598488 Assessment Tobacco abuse counseling Z71.6 Jul, Active 127365376 Problem Situational stress F43.9 Active 25231832 Problem Cervicalgia M54.2 Active 16932388 Assessment Tobacco abuse Z72.0 Jul, Active 74548990 Problem Severe episode of recurrent major depressive disorder, without psychotic features F33.2 Active 57546880 Assessment Lumbago with sciatica, left side M54.42 Jul, Active 65948938 Problem Fatigue, unspecified type R53.83 Active 27825228 ALLERGIES Substance Reaction Event Type Date Status PredniSONE exhaustion Drug Allergy Jul, Active Doxycycline Hyclate vomiting Drug Allergy Jul, Active SOCIAL HISTORY No smoking Hx information available PLAN OF CARE VITAL SIGNS Temperature 98.1 degrees Fahrenheit 2016-08-04 Height 62.5 in 2016-08-04 Weight 126.8 lbs 2016-08-04 Oximetry 99% ra/rest % 2016-08-04 BMI 22.82 kg/m2 2016-08-04 Blood pressure systolic 90 mm Hg 2016-08-04 Blood pressure diastolic 64 mm Hg 2016-08-04 MEDICATIONS Medication Instructions Dosage Frequency Start Date End Date Duration Status [place] 10-325 MG Orally every 6 hrs 1 tablet as needed 6h Jul, 30 days Active Wellbutrin SR 100 MG Orally Once a day 1 tablet in the morning 24h Jul, 30 days Active Neurontin 100 MG Orally Three times a day 2 capsules qhs and 1 capsule bid 8h Feb, 30 days Active Methocarbamol 750 MG Orally BID 1-2 tablets 12h 21 Sep, 2015 30 days Active Fetzima 40 MG Orally Once a day 1 capsule 24h 30 days Active Percocet 10-325 MG Orally TID prn 1 tablet as needed Jun, 15 days Active Ibuprofen 800 MG Orally Three times a day 1 tablet 8h Jun, 30 days Active RESULTS No Results PROCEDURES Procedure Date Ordered Related Diagnosis Body Site Office Visit, Est Pt., Level 3 August 04, 2016 IMMUNIZATIONS No Known Immunizations
--- OUTSIDE RECORDS SUMMARY | 2016-09-06 11:27 | XMS REPORT ---
Author Author Dany Guzman Organization [employer] Address [address] [place] [address] Care Team Providers Care In Home Aide Name Role Phone Dany Guzman Unavailable [phone] PROBLEMS Type Condition ICD9-CM Code DGM60-DX Code Onset Dates Condition Status SNOMED Code Problem Lumbago with sciatica, left side M54.42 Active 006033939 Problem Cigarette nicotine dependence without complication F17.210 Active 75163222 Problem Other chronic pain G89.29 Active 81786361 Problem Situational stress F43.9 Active 48305847 Problem Cervicalgia M54.2 Active 60950233 Problem Severe episode of recurrent major depressive disorder, without psychotic features F33.2 Active 43069193 Problem Fatigue, unspecified type R53.83 Active 80723115 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
--- OUTSIDE RECORDS SUMMARY | 2016-09-06 11:27 | XMS REPORT | Continuity of Care Document ---
Author Author [facility] Organization [facility] Address Unknown Phone Unavailable Care Team Providers Care Tank Cleaning Supervisor Name Role Phone MÓNICA CUMMINS M.D. Primary Care Physician [phone] Insurance Providers Payer Name Policy Number Subscriber Name Relationship [facility] [id number] Sindi Pressley 01 Self / Same As Patient Chief Complaint and Reason for Visit Chief Complaint Headache Reason for Visit Migraine Problems Medical Problems Problem Onset Date Status [...] PRN 10 Qty for pain 10/02/13 Active Ayddbgbuku-Bsbrmkdgoeupc-Coxoy 1 Tab PO THREE TIMES A DAY 12 Qty Active Ondansetron 4 Mg PO Q6H PRN 8 Qty 10/29/13 Active Social History Social History Problem Response Recorded Date/Time Smoking Status Light Tobacco Smoker 10/29/2013 9:00am Query Response Start Date Stop Date Smoking Status Light Tobacco Smoker Hospital Discharge Instructions No hospital discharge instructions. Plan of Care Discharge Date 10/29/13 10:44am Disposition 01 HOME, SELF-CARE Condition at Discharge Stable Instructions/Education Provided Migraine Headache (ED) Prescriptions See Medications Section Referrals MARIA G,PRICILLA M.D. Functional Status No functional status results. Allergies, Adverse Reactions, Alerts Allergen Type Severity Reaction Status Last Updated Acetaminophen Adverse Reaction Unknown Hives Active 07/14/13 Hydrocodone Adverse Reaction Unknown Hives Active 07/14/13 Tetracycline Adverse Reaction Unknown Nausea/Vomiting Active 07/03/13 Immunizations No immunization records. Vital Signs Acute Vital Signs Vital Response Date/Time Blood Pressure 98/74 mm Hg 10/29/2013 10:34am Blood Pressure Mean 82 mm Hg 10/29/2013 10:34am Pulse 10/29/2013 10:34am Pulse Rate: ED 71 bpm 10/29/2013 10:34am Respiratory Rate 16 breaths per minute (10 - 20) 10/29/2013 10:34am Ambulatory Vital Signs Vital Response Date/Time Height [...] Encounters Encounter Location Date/Time Departed Emergency Room [facility] 10/29/13 8:57am Departed Emergency Room [facility] 10/02/13 5:59pm Office Visit [facility] 07/31/13 2:30pm Departed Emergency Room [facility] 07/14/13 12:14pm Office Visit [facility] 07/10/13 3:15pm Departed Emergency Room [facility] 07/02/13 10:39pm Office Visit [facility] 06/29/13 1:30pm Departed Emergency Room [facility] 06/27/13 3:45pm Departed Emergency Room [facility] 03/11/13 5:20pm Departed Emergency Room [facility] 02/05/13 7:41pm Recent Diagnosis Migraine
--- OUTSIDE RECORDS SUMMARY | 2016-09-06 11:27 | XMS REPORT ---
Author Author Deyanira Kebede Organization [employer] Address Unknown Phone Unavailable Care Team Providers Care Regional Account Executive Name Role Phone Deyanira Kebede CP Unavailable Allergies No Known Allergies Problems No Known Problems Medications Medication Code System Code Instructions Start Date End Date Status Dosage Flagyl [facility] [address]-20 500 MG Orally Twice a day Apr 28, 2015 1 tablet Results No Known Results Summary Purpose eClinicalWorks Submission
--- OUTSIDE RECORDS SUMMARY | 2016-09-06 11:27 | XMS REPORT | Continuity of Care Document ---
Author Author [facility] Organization [facility] Address Unknown Phone Unavailable Support Name Relationship Address Phone CR, MÓNICA Apodaca M.D. Caregiver [facility] [address] [facility], [address] [place] [id number] MÓNICA CUMMINS M.D. Caregiver [address] [place] [address] DAHLIA CASTILLO Next Of Kin [address] [place] [address] [employer] Insurance Providers Payer Name Policy Number Subscriber Name Relationship [facility] [id number] Sindi Pressley 01 Self / Same As Patient Chief Complaint and Reason for Visit Chief Complaint Shoulder Pain Reason for Visit Cervical radiculopathy at C6 Problems Medical Problems Problem Onset Date Status Rectal pain s/p recent hemorrhoidectomy Unknown Active Postoperative visit Unknown Active Abdominal pain Unknown Active Cervical pain (neck) Unknown Active Dehydration Unknown Active Cervical radiculopathy at C6 Unknown Active Medications Medication Dose Route Sig Days/Qty Instructions Order Date Discontinued Date Status Ciprofloxacin Hcl 500 Mg PO TWICE A DAY 10 Days 03/11/13 03/22/13 Discontinued Cyclobenzaprine Hcl 10 Mg PO THREE TIMES A DAY For Not written in order 30 Qty 05/04/14 Active Hydrocodone-Acetaminophen 1-2 Tab PO Q4-6H PRN PAIN 20 Qty for pain 05/04 Active Prednisone 60 Mg PO DAILY For Not written in order 7 Days 05/04/14 Active Naproxen 500 Mg PO DAILY For Not written in order 20 Qty 05/04/14 Active Social History Social History Problem Response Recorded Date/Time Smoking Status Light Tobacco Smoker 05/04/2014 10:17pm Query Response Start Date Stop Date Smoking Status Light Tobacco Smoker Hospital Discharge Instructions No hospital discharge instructions. Plan of Care Discharge Date 05/04/14 10:58pm Disposition 01 HOME, SELF-CARE Condition at Discharge Stable Instructions/Education Provided Cervical Radiculopathy (ED) Prescriptions See Medications Section Referrals LIBRODO,LOLI M M.D. Functional Status No functional status results. Allergies, Adverse Reactions, Alerts Allergen Type Severity Reaction Status Last Updated Doxycycline Allergy Mild vomiting Active 05/04/14 Immunizations No immunization records. Vital Signs Acute Vital Signs Vital Response Date/Time Blood Pressure 113/70 mm Hg Blood Pressure Mean 79 mm Hg Blood Pressure Mean 84 mm Hg Temperature (Fahrenheit) 97.5 degrees F (96.0 - 99.9) Temperature (Calculated Celsius) 36.44279 degrees C Temperature Source Oral Temperature Source Oral Temp 98.2 degrees F (96.0 - 99.9) Temperature (Calculated Celsius) 36.65858 degrees C Pulse Pulse Rate (adult) 77 bpm (60 - 100) Pulse Rate (adult) 60 bpm (60 - 100) Pulse Rate: ED 97 bpm Respiratory Rate 18 breaths per minute (10 - 20) Respiratory Rate 8 bpm (10 - 20) Height (Feet) 5 ft Height (Inches) 3 in. Weight (Pounds) 148 lbs Ambulatory Vital Signs Vital Response Date/Time [...] Source Date Result Interp. Ref. Range Comments Free Triiodothyronine March 13, 2014 9:30am 2.7 pg/mL 1.7-3.7 T3 Free performed at [facility] Reference Lab, [address] [place], [place] [address]Medical Director Saud Alcocer MD Thyroperoxidase Antibody March 13, 2014 9:30am <3 IU/mL 0-6 Thyroperoxidase Ab (TPO) performed at [facility] Reference Lab, [facility] [place] [address] Emt I/99 Saud Alcocer MD Free Thyroxine March 13, 2014 9:30am 0.87 ng/dL N 0.58-1.64 Thyroid Stimulating Hormone (TSH) March 13, 2014 9:30am 2.48 uIU/ml N 0.34-5.60 Alanine Aminotransferase (ALT/SGPT) February 13, 2014 11:05am [...] COMMENT: 07SOURCE: URINE, CLEAN CATCH Urine Specific [place] July 02, 2013 11:05pm 1.025 1.005-1.030 SOURCE: [...] Procedures Procedure Status Date Provider(s) THER/PROPH/DIAG INJ IV PUSH completed 02/13/14 JANETH JOY M.D. TX/PRO/DX INJ NEW DRUG ADDON completed 02/13/14 JANETH JOY M.D. HYDRATE IV INFUSION ADD-ON completed 02/13/14 JANETH JOY M.D. REMOVE IN/EX HEM GROUPS 2+ completed 06/22/13 ROBBIE ADAM M.D. Hemorrhoidectomy (procedure) completed 06/22/13 ROBBIE ADAM M.D. THER/PROPH/DIAG IV INF INIT completed 07/02/13 MÓNICA HANKINS M.D. TX/PRO/DX INJ NEW DRUG ADDON completed 07/02/13 CR,MÓNICA Apodaca M.D. THER/PROPH/DIAG INJ SC/IM completed 07/14/13 MÓNICA HANKINS M.D. THER/PROPH/DIAG INJ IV PUSH completed 10/29/13 VALERIA SOLIS M.D. TX/PRO/DX INJ NEW DRUG ADDON completed 10/29/13 VALERIA SOLIS M.D. TX/PRO/DX INJ NEW DRUG ADDON completed 10/29/13 VALERIA SOLIS M.D. THER/PROPH/DIAG INJ SC/IM completed 10/30/13 MÓNICA CUMMINS M.D. Encounters Encounter Location Date/Time Departed Emergency Room [facility] 05/04/14 10:12pm Departed Emergency Room [facility] 02/13/14 10:24am Registered Clinic [facility] 10/30/13 11:55am Departed Emergency Room [facility] 10/29/13 8:57am Departed Emergency Room [facility] 10/02/13 5:59pm Office Visit ROBBIE ADAM 07/31/13 2:30pm Departed Emergency Room [facility] 07/14/13 12:14pm Office Visit ROBBIE ADAM 07/10/13 3:15pm Departed Emergency Room [facility] 07/02/13 10:39pm Office Visit ROBBIE ADAM 06/29/13 1:30pm Departed Emergency Room [facility] 06/27/13 3:45pm Recent Diagnosis
--- OUTSIDE RECORDS SUMMARY | 2016-09-06 11:27 | XMS REPORT ---
Author Author Deyanira Kebede Organization [employer] Address Unknown Phone Unavailable Care Team Providers Care Plastic Top Assembler Name Role Phone Deyanira Kebede CP Unavailable Allergies, Adverse Reactions, Alerts Substance Reaction Event Type Doxycycline Hyclate vomiting Drug Allergy Problems Problem Type Condition ICD-9 Code Onset Dates Condition Status Assessment Dysuria 788.1 Active Assessment Cervicalgia 723.1 Active Medications Medication Code System Code Instructions Start Date End Date Status Dosage Neurontin [facility] [address]-71 100 MG Orally QHS Dec 18, 2013 1 capsule Zyrtec Allergy [facility] [address]-28 10 MG Orally Once a day November 07, 2013 1 tablet as needed Fetzima [facility] [address]-34 40 MG Orally Once a day Jan 24, 2014 1 capsule Ibuprofen [facility] [address]-78 800 MG Orally Three times a day Mar 12, 2014 1 tablet [place] [facility] [address]-01 7.5-325 MG Orally every 6 hrs 1 tablet as needed Zanaflex [facility] [address]-97 4 MG Orally BID 1 tablet as needed Fetzima [facility] [address]-53 20 MG Orally Once a day Jan 24, 2014 1 capsule Omeprazole [facility] [address]-58 20 MG Orally Once a day Apr 12, 2014 1 capsule Procedures Procedure Coding System Code Date ESTAB PATIENTLEVEL III CPT-4 96679 July 08, 2014 BP SCR PRFRM RCMDD DEFIND SCR INTVL CPT-4 G8783 July 08, 2014 URINE DIP CPT-4 35359 July 08, 2014 Vital Signs Date/Time: July 08, 2014 Blood Pressure Diastolic 70 mm Hg Blood Pressure Systolic 110 mm Hg Temperature 97.7 F BMI 24.89 Index Weight 145 lbs Height 64 in Results No Known Results Summary Purpose [employer] Submission
--- OUTSIDE RECORDS SUMMARY | 2016-09-06 11:27 | XMS REPORT ---
Author Author Danial Andrade [employer] Address Unknown Phone Unavailable Care Team Providers Care Gas Plant Operator Name Role Phone Danial Andrade CP Unavailable Allergies, Adverse Reactions, Alerts Substance Reaction Event Type Doxycycline Hyclate vomiting Drug Allergy Problems Problem Type Condition ICD-9 Code Onset Dates Condition Status Assessment Unspecified hypothyroidism 244.9 Active Assessment Cervicalgia 723.1 Active Assessment Unspecified myalgia and myositis 729.1 Active Medications Medication Code System Code Instructions Start Date End Date Status Dosage Fetzima [facility] [address]-50 40 MG Orally Once a day Jan 24, 2014 Active 1 capsule Fetzima [facility] [address]-64 20 MG Orally Once a day Jan 24, 2014 Active 1 capsule Zanaflex [facility] [address]-35 4 MG Orally BID October 30, 2013 Active 1 tablet as needed Ibuprofen [facility] [address]-25 800 MG Orally Three times a day Mar 12, 2014 Active 1 tablet Zyrtec Allergy [facility] [address]-58 10 MG Orally Once a day November 07, 2013 Active 1 tablet as needed Neurontin [facility] [address]-87 100 MG Orally QHS Dec 18, 2013 Active 1 capsule [place] [facility] [address]-86 5-325 MG Orally QD-BID Dec 18, 2013 Inactive 1 tablet as needed [place] [facility] [address]-24 7.5-325 MG Orally every 6 hrs Mar 12, 2014 Active 1 tablet as needed Procedures Procedure Coding System Code Date ESTAB PATIENTLEVEL III CPT-4 57169 Mar 12, 2014 Vital Signs Date/Time: Mar 12, 2014 Blood Pressure Diastolic 60 mm Hg Blood Pressure Systolic 102 mm Hg Temperature 97.5 F BMI 25.23 Index Weight 147 lbs Height 64 in Results No Known Results Summary Purpose [employer] Submission
--- OUTSIDE RECORDS SUMMARY | 2016-09-06 11:28 | XMS REPORT ---
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 72422276 Problem Lumbago with sciatica, right side M54.41 Active 724039334 Problem Neuropathy of left lower extremity G57.92 Active 388542847 Problem Chronic pain syndrome G89.4 Active 168825096 Problem Hereditary and idiopathic peripheral neuropathy G60.9 Active 050572378 Problem Acute left-sided low back pain with left-sided sciatica M54.42 Active 875005350 Assessment Tobacco abuse Z72.0 Mar, Active 126909996 Assessment Abnormal bruising R23.8 Mar, Active 893409891 Assessment Tobacco abuse counseling Z71.6 Mar, Active 891541590 Problem Situational stress F43.9 Active 80402719 Problem Cervicalgia M54.2 Active 72300295 Assessment Radiculopathy of leg M54.10 Mar, Active 41008968 Problem Severe episode of recurrent major depressive disorder, without psychotic features F33.2 Active 39379497 Assessment Lumbago with sciatica, left side M54.42 Mar, Active 43631870 Problem Fatigue, unspecified type R53.83 Active 76125281 ALLERGIES Substance Reaction Event Type Date Status PredniSONE exhaustion Drug Allergy Mar, Active Doxycycline Hyclate vomiting Drug Allergy Mar, Active Bactrim Unknown Drug Allergy Mar, Active SOCIAL HISTORY No smoking Hx information available PLAN OF CARE VITAL SIGNS Height 62.5 in 2016-04-14 Weight 129.2 lbs 2016-04-14 Oximetry 96% RA % 2016-04-14 BMI 23.25 kg/m2 2016-04-14 Blood pressure systolic 126 mm Hg 2016-04-14 Blood pressure diastolic 75 mm Hg 2016-04-14 MEDICATIONS Medication Instructions Dosage Frequency Start Date End Date Duration Status Methocarbamol 750 MG Orally BID 1-2 tablets 12h Sep, 30 days Active [place] 10-325 MG Orally every 6 hrs 1 tablet as needed 6h Mar, 30 days Active Neurontin 100 MG Orally Three times a day 2 capsules qhs and 1 capsule bid 8h Feb, 30 days Active Fetzima 40 MG Orally Once a day 1 capsule 24h 30 days Active Ibuprofen 200 MG Orally tid 4 tablets as needed 8h Active RESULTS Name Result Date Reference Range *CBC With Platelet and Differential 2016-04-14 WBC 9.8 4.8-10.8 RBC 4.00 4.00-5.20 HGB 13.2 12.0-16.0 HCT 38.9 37.0-47.0 MCV 97.3 82.0-99.0 MCH 33.0 27.0-32.0 MCHC 33.9 32.0-36.0 RDW 11.6 11.5-14.5 MPV 10.7 8.8-14.8 Platelet Count 215 150-400 Immature Granulocytes 0.3 0.0-1.0 Absolute Neutrophils 6.93 1.90-7.00 Absolute Lymphocytes 2.03 0.80-3.30 Absolute Monocytes 0.66 0.30-1.00 Absolute Eosinophils 0.17 0.00-0.50 Absolute Basophils 0.02 0.00-0.20 Neutrophils 71 51-75 Lymphocytes 21 20-46 Monocytes 7 4-11 Eosinophils 2 0-4 Basophils 0 0-2 *Comprehensive Metabolic Panel (CMP) 2016-04-14 Glucose 87 70-99 BUN 23 7-19 Creatinine 0.66 0.57-1.11 Calcium 9.4 8.9-10.5 Sodium 140 135-144 Potassium 4.4 3.5-5.2 Chloride 109 99-111 CO2 21 22-31 Albumin 4.7 3.5-5.0 Bilirubin Total 0.4 0.2-1.2 Alkaline Phosphatase 42 40-150 Protein 7.0 6.1-7.7 ALT (SGPT) 10 0-55 AST (SGOT) 13 5-34 Anion Gap 10 3-20 Globulin 2.3 1.8-4.0 *Free T4 2016-04-14 Free T4 0.8 0.7-1.5 eGFR 2016-04-14 eGFR >60 >60 *TSH 2016-04-14 TSH 0.86 0.35-4.94 PTT/PT (INR) 2016-04-14 INR 1.0 0.9-1.2 PTT 28.7 25.0-35.0 T3 Free 2016-04-14 T3 Free 1.4 1.7-3.7 PROCEDURES Procedure Date Ordered Related Diagnosis Body Site COMPLETE CBC W/AUTO DIFF WBC Apr 14, 2016 COMPREHEN METABOLIC PANEL Apr 14, 2016 VENIPUNCT, ROUTINE* Apr 14, 2016 PROTHROMBIN TIME Apr 14, 2016 Office Visit, Est Pt., Level 3 Apr 14, 2016 ASSAY THYROID STIM HORMONE Apr 14, 2016 ASSAY OF FREE THYROXINE Apr 14, 2016 THROMBOPLASTIN TIME, PARTIAL Apr 14, 2016 FREE ASSAY (FT-3) Apr 14, 2016 IMMUNIZATIONS No Known Immunizations
--- OUTSIDE RECORDS SUMMARY | 2016-09-06 11:28 | XMS REPORT ---
Author Author Dany Guzman Organization [employer] Address Unknown Phone Unavailable Care Team Providers Care Diet Kitchen Cook Name Role Phone Dany Guzman CP Unavailable Allergies No Known Allergies Problems Problem Type Condition Code Onset Dates Condition Status Assessment Lumbago with sciatica, left side M54.42 Active Assessment Acute maxillary sinusitis, recurrence not specified J01.00 Active Problem Other chronic pain G89.29 Active Problem Lumbago with sciatica, left side M54.42 Active Problem Cigarette nicotine dependence without complication F17.210 Active Problem Cervicalgia M54.2 Active Problem Situational stress F43.9 Active Problem Fatigue, unspecified type R53.83 Active Problem Severe episode of recurrent major depressive disorder, without psychotic features F33.2 Active Medications Medication Code System Code Instructions Start Date End Date Status Dosage [place] [facility] [address]-60 10-325 MG Orally TID prn Feb 17, 2016 1 tablet as needed Ceftin [facility] [address]-22 250 MG Orally Twice a day Feb 13, 2016 1 tablet Results No Known Results Summary Purpose [employer] Submission
--- OUTSIDE RECORDS SUMMARY | 2016-09-06 11:28 | XMS REPORT | Referral Summary ---
Author Author [facility] Organization [facility] Address Unknown Phone Unavailable Care Team Providers Care [employer] Professor Name Role Phone Kaila Guzman Primary Care Physician [phone] Encounter Date(s): 01/08/16 - 01/08/[address] [facility] [address] [place], [place] [address] Discharge Diagnosis: H/O fatigue Discharge Disposition: 01-Home or Self Care Attending Physician: Vinita Reddy MD Admitting Physician: Vinita Reddy MD Vital Signs Most recent to 1 oldest [Reference Range]: Temperature Oral 36.7 degC [35.8-37.3 degC] (01/08/16 3:43 PM) Peripheral Pulse 77 bpm Rate [60-100 bpm] (01/08/16 3:43 PM) Respiratory Rate 16 br/min [14-20 br/min] (01/08/16 3:43 PM) Blood Pressure 125/86 mmHg [90-140/60-90 mmHg] (01/08/16 3:43 PM) SpO2 98 % (01/08/16 3:43 PM) Problem List Condition Effective Dates Status Health Status Informant Cervical Active radiculopathy(Confir med) Depression(Confirmed Active ) Urinary Active infection(Confirmed) Thyroid Active disease(Confirmed) Kidney Active stones(Confirmed) Pelvic pain/pelvic Active mass(Confirmed) Tachycardia(Confirme Active d) Tobacco Active patient user(Confirmed) Varicella(Confirmed) Active Allergies, Adverse Reactions, Alerts Substance Reaction Severity Status doxycycline hyclate Nausea Unknown Active Medications Fioricet Oral, q4hr, 0 Refill(s) Start Date: 03/06/14 Status: Ordered Flonase 50 mcg/inh nasal spray 2 sprays, Nasal, Daily, 0 Refill(s) Start Date: 03/06/14 Status: Ordered ibuprofen 800 mg oral tablet 1 tabs, Oral, BID, 0 Refill(s) Start Date: 03/06/14 Status: Ordered Lortab 7.5/325 1 tabs, Oral, q6hr, 0 Refill(s) Start Date: 03/06/14 Status: Ordered methocarbamol 750 mg oral tablet mg tabs, Oral, TID, 0 Refill(s) Start Date: 01/08/16 Status: Ordered sertraline 100 mg oral tablet 1 tabs, Oral, Daily, 0 Refill(s) Start Date: 03/06/14 Status: Ordered Vitamin B12 0 Refill(s) Start Date: 01/08/16 Status: Ordered Results Chemistry Most recent to 1 oldest [Reference Range]: Sodium Venous 139 mEq/L [136-144 mEq/L] (01/08/16 4:24 PM) Potassium Venous 3.9 mEq/L 1 [3.6-5.1 mEq/L] (01/08/16 4:24 PM) Calcium Ionized 1.20 mmol/L Venous [1.19-1.41 (01/08/16 4:24 PM) mmol/L] Total CO2 Venous 23 mEq/L [25-29 mEq/L] *LOW* (01/08/16 4:24 PM) HGB Venous NPT 13.9 gm/dL [12.0-16.0 gm/dL] (01/08/16 4:24 PM) HCT Venous 41.0 % [37.0-47.0 %] (01/08/16 4:24 PM) Glucose Venous 85 mg/dL [70-100 mg/dL] (01/08/16 4:24 PM) BUN Venous [4-20] 18 (01/08/16 4:24 PM) Creatinine Venous 0.6 mg/dL [0.4-1.0 mg/dL] (01/08/16 4:24 PM) Venous CL [99-109 103 mEq/L mEq/L] (01/08/16 4:24 PM) Anion Gap, Alvaro 13 [3-20] (01/08/16 4:24 PM) 1Result Comment: This test was performed on a whole blood specimen. The presence or absence of hemolysis cannot be assessed. Hemolysis can falsely elevate potassium levels. Normals are for venous specimens only. Immunizations Vaccine Date Refusal Reason tetanus/diphth/pertuss (Tdap) adult/adol 03/10/09 hepatitis B adult vaccine 03/11/09 hepatitis B adult vaccine 04/13/07 hepatitis B pediatric vaccine 02/24/06 hepatitis B pediatric vaccine 01/24/06 human papillomavirus vaccine 04/13/07 human papillomavirus vaccine 02/06/07 Procedures Procedure Date Related Diagnosis Body Site Robotic-assisted laparoscopic hysterectomy 11/17/12 11/17/12 Cervical epidural steroid injection 06-27-12 06/27/12 Tubal ligation 01/07/12 Appendectomy section laparoscopic on uterus Surgical LEEP Tonsillectomy Social History Social History Type Response Smoking Status Former smoker; Type: Cigarettes; Tobacco use per day: 1 Pack ; Number of years: 5; Total pack years: 51 1quit in 2008 Assessment and Plan No data available for this section
--- OUTSIDE RECORDS SUMMARY | 2016-09-06 11:28 | XMS REPORT ---
Author Author Danial Andrade [employer] Address Unknown Phone Unavailable Care Team Providers Care Damage Adjuster Name Role Phone Danial Andrade CP Unavailable Allergies, Adverse Reactions, Alerts Substance Reaction Event Type Doxycycline Hyclate vomiting Drug Allergy Problems Problem Type Condition Code Onset Dates Condition Status Problem Severe episode of recurrent major depressive disorder, without psychotic features F33.2 Active Problem Cervicalgia M54.2 Active Problem Fatigue, unspecified type R53.83 Active Assessment Lumbago with sciatica, right side M54.41 Active Problem Situational stress F43.9 Active Assessment Lumbago with sciatica, left side M54.42 Active Medications Medication Code System Code Instructions Start Date End Date Status Dosage Aleve [facility] [address]-81 220 MG Orally every 12 hrs Dec 01, 2015 1 tablet as needed Medrol (Marcello) NDC 0 4 mg Orally daily Dec 01, 2015 as directed Fetzima Titration [facility] [address]-12 20 & 40 MG Orally daily October 14, 2015 as directed Methocarbamol [facility] [address]-45 750 MG Orally BID October 14, 2015 1-2 tablets [place] [facility] [address]-16 7.5-325 MG Orally TID October 14, 2015 1 to 2 tablet as needed Ibuprofen [facility] [address]-55 200 MG Orally tid 4 tablets as needed Procedures Procedure Coding System Code Date THER/PROPH/DIAG INJ, SC/IM CPT-4 92065 Dec 01, 2015 Office Visit, Est Pt., Level 3 CPT-4 51689 Dec 01, 2015 Depo-Medrol (Methylprednisolone Acetate) CPT-4 J1030 Dec 01, 2015 Vital Signs Date/Time: Dec 01, 2015 Weight 129.8 lbs Height 62.5 in Temperature 98.1 F Oximetry 99% RA % Pulse 87 /min Blood Pressure Diastolic 74 mm Hg Blood Pressure Systolic 100 mm Hg BMI 23.36 Index Results No Known Results Summary Purpose [employer]ClinicalWorks Submission
--- OUTSIDE RECORDS SUMMARY | 2016-09-06 11:28 | XMS REPORT ---
Author Author Danial Andrade [employer] Address Unknown Phone Unavailable Care Team Providers Care Aging Room Hand Name Role Phone Danial Andrade CP Unavailable Allergies, Adverse Reactions, Alerts Substance Reaction Event Type Doxycycline Hyclate vomiting Drug Allergy Problems Problem Type Condition Code Onset Dates Condition Status Assessment Cervicalgia 723.1 Active Medications Medication Code System Code Instructions Start Date End Date Status Dosage [place] [facility] [address]-00 7.5-325 MG Orally every 6 hrs 1 tablet as needed Omeprazole [facility] [address]-58 20 MG Orally Once a day Apr 12, 2014 1 capsule Promethazine-Codeine [facility] [address]-06 6.25-10 MG/5ML Orally every 6 hrs 5 ml as needed Baclofen [facility] [address]-68 10 MG Orally BID August 29, 2014 1 tablet with food or milk Zorvolex [facility] [address]-71 35 MG Orally Three times a day August 29, 2014 1 capsule Neurontin [facility] [address]-62 100 MG Orally QHS Dec 18, 2013 1 capsule Zithromax Z-[place] [facility] [address]-58 250 MG Orally Once a day 2 tablets on the first day, then 1 tablet daily for 4 days Procedures Procedure Coding System Code Date ESTAB PATIENTLEVEL III CPT-4 46420 August 29, 2014 Vital Signs Date/Time: August 29, 2014 Blood Pressure Diastolic 80 mm Hg Blood Pressure Systolic 132 mm Hg Temperature 97.0 F BMI 24.54 Index Weight 143 lbs Height 64 in Results No Known Results Summary Purpose [employer]ClinicalWorks Submission
--- OUTSIDE RECORDS SUMMARY | 2016-09-06 11:28 | XMS REPORT ---
Author Author Dany Guzman [facility] [employer] Address Unknown Phone Unavailable Care Team Providers Care Senior Physician Name Role Phone Dany Guzman CP Unavailable Allergies, Adverse Reactions, Alerts Substance [...]
--- OUTSIDE RECORDS SUMMARY | 2016-09-06 11:28 | XMS REPORT | Continuity of Care Document ---
Author Author [facility] Organization [facility] Address Unknown Phone Unavailable Care Team Providers Care External Grinder Name Role Phone MÓNICA CUMMINS M.D. Primary Care Physician [phone] Insurance Providers Payer Name Policy Number Subscriber Name Relationship [facility] [id number] Sindi Pressley 01 Self / Same As Patient Problems Medical Problems Problem Onset Date Status Rectal pain s/p recent hemorrhoidectomy Unknown Active Postoperative visit Unknown Active Abdominal pain Unknown Active Cervical pain (neck) Unknown Active Medications Medication Dose Route Sig Days/Qty Instructions Order Date Discontinued Date Status Ciprofloxacin Hcl 500 Mg PO TWICE A DAY 10 Days 03/11/13 03/22/13 Discontinued Gzoyxvkpsv-Omkpgurenrldj-Aofef 1 Tab PO THREE TIMES A DAY 12 Qty Active Ondansetron 4 Mg PO Q6H PRN 8 Qty 10/29/13 Active Social History Social History Problem Response Recorded Date/Time Smoking Status Light Tobacco Smoker 10/29/2013 9:00am Query Response Start Date Stop Date Smoking Status Light Tobacco Smoker Hospital Discharge Instructions No hospital discharge instructions. Plan of Care Discharge Date 10/29/13 10:44am Instructions/Education Provided Migraine Headache (ED) Prescriptions See Medications Section Functional Status No functional status results. Allergies, Adverse Reactions, Alerts Allergen Type Severity Reaction Status Last Updated Acetaminophen Adverse Reaction Unknown Hives Active 07/14/13 Hydrocodone Adverse Reaction Unknown Hives Active 07/14/13 Tetracycline Adverse Reaction Unknown Nausea/Vomiting Active 07/03/13 Immunizations No immunization records. Vital Signs Acute Vital Signs Vital Response Date/Time Blood Pressure 111/81 mm Hg 10/30/2013 12:10pm Blood Pressure Mean 91 mm Hg 10/30/2013 12:10pm Temperature (Fahrenheit) 98.1 degrees F (96.0 - 99.9) 10/30/2013 12:10pm Temperature (Calculated Celsius) 36.57283 degrees C 10/30/2013 12:10pm Temperature Source Oral 10/30/2013 12:10pm Pulse 10/30/2013 12:10pm Pulse Rate: ED 87 bpm 10/30/2013 12:10pm Respiratory Rate 18 breaths per minute (10 - 20) 10/30/2013 12:10pm Ambulatory Vital Signs Vital Response Date/Time Height [...] Interp. Ref. Range Comments Alanine Aminotransferase (ALT/SGPT) July 02, 2013 11:13pm 27 U/L N 5- 40 Albumin July 02, 2013 11:13pm 4.1 gm/dL N 3.2-5.0 Albumin/Globulin Ratio July 02, 2013 11:13pm 1.5 N 1.4-2.4 Alkaline Phosphatase July 02, 2013 11:13pm 46 U/L N 35-125 Amylase Level October 02, 2004 11:10am 32 U/L L 37-127 COMMENTS? ROOM 8 Anion Gap July 02, 2013 11:13pm 3.4 L 6-13 Aspartate Amino Transf (AST/SGOT) July 02, 2013 11:13pm 22 U/L N 5-40 BUN/Creatinine Ratio July 02, 2013 11:13pm 31.6 Band Neutrophils October 02, 2004 11:10am 8.0 % H 0-7 COMMENTS? ROOM 8 Basophils # (Auto) July 02, 2013 11:13pm 0.0 K/uL N 0-0.2 Basophils (%) (Auto) July 02, 2013 11:13pm 0.5 % N 0-1 Blood Urea Nitrogen July 02, 2013 11:13pm 18 mg/dL N 8-25 Calcium Level July 02, 2013 11:13pm 9.2 mg/dL N 8.2-10.6 Carbon Dioxide Level July 02, 2013 11:13pm 28 mEq/L N 22-34 Chlamydia DNA Probe March 07, 2009 4:15pm See separate report COMMENTS ROOM 8 Chloride Level July 02, 2013 11:13pm 110 mEq/L N 98-116 Creatinine July 02, 2013 11:13pm 0.57 mg/dL L 0.9-1.6 Eosinophils # (Auto) July 02, 2013 11:13pm 0.0 K/uL N 0-0.8 Eosinophils (%) (Auto) July 02, 2013 11:13pm 0.5 % N 0-7.0 Globulin July 02, 2013 11:13pm 2.8 gm/dL N 2.0-3.0 Hematocrit July 02, 2013 11:13pm 38.1 % N 38.0-47.0 Hemoglobin July 02, 2013 11:13pm 13.1 g/dL N 12.0-16.0 Immature Blood Cells December 23, 2006 10:25pm 0.2 X10.e3/U N 0-0.4 COMMENTS?ROOM 8 Lipase July 02, 2013 11:13pm 43 U/L N 8-57 Lymphocytes # (Auto) July 02, 2013 11:13pm 2.8 K/uL N 0.9-5.2 Lymphocytes (%) (Auto) July 02, 2013 11:13pm 34.5 % N 16.0-44.0 Lymphocytes (Manual) October 02, 2004 11:10am 13.0 % L 18.0-53.0 COMMENTS ? ROOM 8 Mean Corpuscular Hemoglobin July 02, 2013 11:13pm 32.3 pg N 26.0-33.0 Mean Corpuscular Hemoglobin Concent July 02, 2013 11:13pm 34.4 g/dL N 31.0-36.0 Mean Corpuscular Volume July 02, 2013 11:13pm 93.8 fL N 82.0-100.0 Mean Platelet Volume July 02, 2013 11:13pm 10.1 fL N 7.0-11.0 Monocytes # (Auto) July 02, 2013 11:13pm 0.5 K/uL N 0.16-1.0 Monocytes (%) (Auto) July 02, 2013 11:13pm 6.3 % N 2.0-9.0 Monocytes (Manual) October 02, 2004 11:10am 4.0 % N 2.0-13.0 COMMENTS? ROOM 8 Neutrophils October 02, 2004 11:10am 75.0 % H 36.0-73.5 COMMENTS? ROOM 8 Neutrophils # (Auto) July 02, 2013 11:13pm 4.8 K/uL N 1.9-8.0 Neutrophils (%) (Auto) July 02, 2013 11:13pm 58.0 % N 42.0-75.0 Nucleated Red Blood Cells # July 02, 2013 11:13pm 0.00 K/uL N 0.0- 0.012 Nucleated Red Blood Cells % July 02, 2013 11:13pm 0.0 /100WBC N 0-0 Platelet Count July 02, 2013 11:13pm 230 K/uL N 130-400 Platelet Estimate October 02, 2004 11:10am Normal NORMAL COMMENTS? ROOM 8 Potassium Level July 02, 2013 11:13pm 3.4 mEq/L L 3.5-5.1 RDW Standard Deviation July 02, 2013 11:13pm 41.2 fL N 36.4-46.3 Random Glucose July 02, 2013 11:13pm 81 mg/dL N 65-115 Red Blood Count July 02, 2013 11:13pm 4.06 M/uL L 4.20-5.40 Red Cell Distribution Width July 02, 2013 11:13pm 12.0 % N 11.5-14.5 Sodium Level July 02, 2013 11:13pm 138 mEq/L N 133-145 Total Bilirubin July 02, 2013 11:13pm 0.3 mg/dL N 0.1-1.3 Total Protein July 02, 2013 11:13pm 6.9 gm/dL N 6.0-8.4 Urine Amorphous Sediment March [...] COMMENT: 07SOURCE: URINE, CLEAN CATCH Urine Specific [place] July 02, 2013 11:05pm 1.025 1.005-1.030 SOURCE: [...] SOURCE: URINE, CLEAN CATCH White Blood Count July 02, 2013 11:13pm 8.2 K/uL N 5.0-10.0 Glomerular Filtration Rate Calc July 02, 2013 11:13pm > 60.00 mL/min MULTIPLY RESULT BY 1.210 IF THE PATIENT IS -AMERICANUnits are mL/min/ 1.73 m2 > 60 Normal kidney function 30-59 Moderately decreased kidney function 15-29 Severely decreased kidney function <15 End-stage kidney failure Immature Granulocyte # (Auto) July 02, 2013 11:13pm 0.02 K/uL N 0-0.40 Immature Granulocyte % (Auto) July 02, 2013 11:13pm 0.2 % N 0-0.5 Wet Prep Vaginal March 07, 2009 4:00pm [...] MÓNICA HANKINS M.D. Encounters Encounter Location Date/Time Registered Clinic [facility] 10/30/13 11:55am Departed Emergency Room [facility] 10/29/13 8:57am Departed Emergency Room [facility] 10/02/13 5:59pm Office Visit [facility] 07/31/13 2:30pm Departed Emergency Room [facility] 07/14/13 12:14pm Office Visit [facility] 07/10/13 3:15pm Departed Emergency Room [facility] 07/02/13 10:39pm Office Visit [facility] AD[facility] 06/29/13 1:30pm Departed Emergency Room [facility] 03/05/14 3:45pm Departed Emergency Room [facility] 03/11/13 5:20pm [facility] 7:41pm
--- OUTSIDE RECORDS SUMMARY | 2016-09-06 11:28 | XMS REPORT | Continuity of Care Document ---
Author Author [facility]ell [facility] Chanell VyasJigna Natalio [facility] Address Unknown Phone Unavailable Care Team Providers Care Manager Office Services Name Role Phone MÓNICA CUMMINS M.D. Primary Care Physician [phone] Insurance Providers Guarantor Kayy Maurice Address [address] [place] [address] [employer] Payer [employer] Policy Number [id number] Subscriber's Name Dvaid Mauriceestefanía Velasquez Relationship 01 Self / Same As Patient Group Number [id number] Group Name [employer] Chief Complaint and Reason for Visit Chief Complaint Abdominal Pain Reason for Visit [id number] Problems Active Problems Medical Problem Onset Date Status Abdominal pain Unknown Acute Acute rhinosinusitis Unknown Acute Cervical pain (neck) Unknown Acute Cervical radiculopathy at C6 Unknown Acute Dehydration Unknown Acute Postoperative visit Unknown Acute Rectal pain s/p recent hemorrhoidectomy Unknown Acute Right ankle sprain Unknown Acute Past Problems Medical Problem Onset Date Epigastric abdominal pain Unknown Medications Current Home Medications Medication Dose Units Route Directions Days Qty Instructions Start Date Oxycodone/Acetaminophen (Percocet 5/325) 1 Tab/1 Un Tab 1 Tab Oral Every 6 Hours as needed for Pain 10 Tablet 09/28/15 Past Home Medications Medication Directions Ordered Status Ciprofloxacin Hcl (Cipro) 500 Mg Tab, 500 Mg Oral Twice A Day 03/11/13 Discontinued Social History Social History Problem Response Recorded Date/Time Onset Date Status Smoking Status Light Tobacco Smoker 09/28/2015 6:07pm Not Applicable Not Applicable Query Response Start Date Stop Date Smoking Status Light Tobacco Smoker Hospital Discharge Instructions No hospital discharge instructions. Plan of Care Discharge Date 09/28/15 7:45pm Disposition 01 HOME, SELF-CARE Condition at Discharge Stable Instructions/Education Provided Abdominal Pain (ED) Prescriptions See Medication Section Referrals MÓNICA CUMMINS M.D. Address: [facility]. [place] [address] [place] [id number] Additional Instructions/Education Avoid spicy and fatty foods. Use Tylenol for mild pain and Percocet for severe pain. Return to the ER if with worsening pain, persistent vomiting or high fever - may need gall bladder sonogram or CT scan of the abdomen at that time. Follow up with your regular doctor this week to have gall bladder ultrasound scheduled as an outpatient. Functional Status No functional status results. Allergies, Adverse Reactions, Alerts Allergen Type Severity Reaction Status Last Updated Doxycycline Adverse Reaction Unknown vomiting Active 03/29/15 Immunizations No immunization records. Vital Signs Acute Vital Signs Vital Response Date/Time Blood Pressure 92/61 mm Hg 09/28/2015 7:43pm Blood Pressure Mean 79 mm Hg 06/22/2013 12:35pm Blood Pressure Mean 71 mm Hg 09/28/2015 7:43pm Temperature (Fahrenheit) 98.9 degrees F (96.0 - 99.9) 09/28/2015 7:31pm Temperature (Calculated Celsius) 37.46053 degrees C 09/28/2015 7:31pm Temperature Source Oral 06/22/2013 12:45pm Temperature Source Oral 09/28/2015 7:31pm Temp 98.2 degrees F (96.0 - 99.9) 06/22/2013 12:45pm Temperature (Calculated Celsius) 36.05822 degrees C 06/22/2013 12:45pm Pulse Pulse Rate (adult) 77 bpm (60 - 100) 06/22/2013 1:15pm Pulse Rate (adult) 60 bpm (60 - 100) 06/22/2013 12:35pm Pulse Rate: ED 82 bpm 09/28/2015 7:43pm Respiratory Rate 16 breaths per minute (10 - 20) 09/28/2015 7:43pm Respiratory Rate 8 bpm (10 - 20) 06/22/2013 12:35pm Height (Feet) 5 ft 09/28/2015 6:05pm Height (Inches) 3.0 in. 09/28/2015 6:05pm Weight (Pounds) 130.0 lbs 09/28/2015 6:05pm Height 5 ft 3 in 09/28/2015 6:05pm Weight 130 lb 09/28/2015 6:05pm Body Mass Index 23.0 kg/m^2 09/28/2015 6:05pm Ambulatory Vital Signs Vital Response Date/Time Height 5 ft 4 in 07/31/2013 2:37pm Weight 150 lbs 07/31/2013 2:37pm Temperature, Oral 98.3 degrees F 07/31/2013 2:37pm Blood Pressure, Sitting, Right Arm 121/81 mm Hg 07/31/2013 2:37pm Pulse Rate 92 bpm 07/31/2013 2:37pm Respiration Rate 15 bpm 07/31/2013 2:37pm Body Surface Area 1.77 m2 07/31/2013 2:37pm Body Mass Index 25.7 kg/m2 07/31/2013 2:37pm Pulse Oximetry Pulse Oximetry 07/31/2013 2:37pm Results Laboratory Results Test Name Result Units Flags Reference Collection Date/Time Result Date/ Time Comments Thyroid Stimulating Hormone (TSH) 2.48 uIU/ml 0.34-5.60 03/13/2014 9: 30am 03/13/2014 11:01am Free Thyroxine 0.87 ng/dL 0.58-1.64 03/13/2014 9:30am 03/13/2014 11: 01am Free Triiodothyronine 2.7 pg/mL 1.7-3.7 03/13/2014 9:30am 03/14/2014 9: 27am T3 Free performed at [facility], [address] [place] [address] Metrology Technician Saud Alcocer MD Thyroperoxidase Antibody <3 IU/mL 0-6 03/13/2014 9:30am 03/14/2014 9: 23am Thyroperoxidase Ab (TPO) performed at [facility], [address] [place] [address] Metrology Technician Saud Alcocer MD White Blood Count 13.7 K/uL H 5.0-10.0 09/28/2015 6:36pm 09/28/2015 6: 48pm Red Blood Count 4.00 M/uL L 4.20-5.40 09/28/2015 6:36pm 09/28/2015 6: 48pm Hemoglobin 13.1 g/dL 12.0-16.0 09/28/2015 6:36pm 09/28/2015 6:48pm Hematocrit 37.8 % L 38.0-47.0 09/28/2015 6:36pm 09/28/2015 6:48pm Mean Corpuscular Volume 94.5 fL 82.0-100.0 09/28/2015 6:36pm 2015 6:48pm Mean Corpuscular Hemoglobin 32.8 pg 26.0-33.0 09/28/2015 6:36pm 2015 6:48pm Mean Corpuscular Hemoglobin Concent 34.7 g/dL 31.0-36.0 09/28/2015 6: 36pm 09/28/2015 6:48pm Red Cell Distribution Width 11.9 % 11.5-14.5 09/28/2015 6:36pm 2015 6:48pm RDW Standard Deviation 41.0 fL 36.4-46.3 09/28/2015 6:36pm 09/28/2015 6 :48pm Platelet Count 207 K/uL 130-400 09/28/2015 6:36pm 09/28/2015 6:48pm Mean Platelet Volume 10.7 fL 7.0-11.0 09/28/2015 6:36pm 09/28/2015 6: 48pm Neutrophils (%) (Auto) 60.1 % 42.0-75.0 09/28/2015 6:36pm 09/28/2015 6: 48pm Lymphocytes (%) (Auto) 31.1 % 16.0-44.0 09/28/2015 6:36pm 09/28/2015 6: 48pm Monocytes (%) (Auto) 5.0 % 2.0-9.0 09/28/2015 6:36pm 09/28/2015 6:48pm Eosinophils (%) (Auto) 3.2 % 0-7.0 09/28/2015 6:36pm 09/28/2015 6:48pm Basophils (%) (Auto) 0.3 % 0-1 09/28/2015 6:36pm 09/28/2015 6:48pm Immature Granulocyte % (Auto) 0.3 % 0-0.5 09/28/2015 6:36pm 09/28/2015 6:48pm Nucleated Red Blood Cells % 0.0 /100WBC 0-0 09/28/2015 6:36pm 2015 6:48pm Neutrophils # (Auto) 8.2 K/uL H 1.9-8.0 09/28/2015 6:36pm 09/28/2015 6: 48pm Lymphocytes # (Auto) 4.3 K/uL 0.9-5.2 09/28/2015 6:36pm 09/28/2015 6: 48pm Monocytes # (Auto) 0.7 K/uL 0.16-1.0 09/28/2015 6:36pm 09/28/2015 6: 48pm Eosinophils # (Auto) 0.4 K/uL 0-0.8 09/28/2015 6:36pm 09/28/2015 6: 48pm Basophils # (Auto) 0.0 K/uL 0-0.2 09/28/2015 6:36pm 09/28/2015 6:48pm Immature Granulocyte # (Auto) 0.04 K/uL 0-0.40 09/28/2015 6:36pm 2015 6:48pm Nucleated Red Blood Cells # 0.00 K/uL 0.0-0.012 09/28/2015 6:36pm 09/27 6:48pm Urine Color YELLOW 09/28/2015 6:36pm 09/28/2015 6:52pm Urine Appearance CLEAR 09/28/2015 6:36pm 09/28/2015 6:52pm Urine Glucose (UA) NEGATIVE NEGATIVE 09/28/2015 6:36pm 09/28/2015 6: 52pm Urine Bilirubin NEGATIVE NEGATIVE 09/28/2015 6:36pm 09/28/2015 6: 52pm Urine Ketones NEGATIVE NEGATIVE 09/28/2015 6:36pm 09/28/2015 6:52pm Urine Specific [place] >=1.030 1.005-1.030 09/28/2015 6:36pm 2015 6:52pm Urine Occult Blood NEGATIVE NEGATIVE 09/28/2015 6:36pm 09/28/2015 6: 52pm Urine pH 6.0 4.5-8.0 09/28/2015 6:36pm 09/28/2015 6:52pm Urine Protein NEGATIVE NEGATIVE 09/28/2015 6:36pm 09/28/2015 6:52pm Urine Urobilinogen 0.2 E.U./dL 0.2-1.0 09/28/2015 6:36pm 09/28/2015 6: 52pm Urine Nitrate NEGATIVE NEGATIVE 09/28/2015 6:36pm 09/28/2015 6:52pm Urine Leukocyte Esterase NEGATIVE NEGATIVE 09/28/2015 6:36pm 2015 6:52pm Random Glucose 92 mg/dL 65-115 09/28/2015 6:36pm 09/28/2015 7:07pm Blood Urea Nitrogen 18 mg/dL 8-25 09/28/2015 6:36pm 09/28/2015 7:07pm Creatinine 0.74 mg/dL L 0.9-1.6 09/28/2015 6:36pm 09/28/2015 7:07pm Glomerular Filtration Rate Calc 94.87 mL/min 09/28/2015 6:36pm 2015 7:06pm MULTIPLY RESULT BY 1.210 IF THE PATIENT IS -[place]RAZIL[place] Units are mL/min/1.73 m2 > 60 Normal kidney function 30-59 Moderately decreased kidney function 15-29 Severely decreased kidney function <15 End-stage kidney failure BUN/Creatinine Ratio 24.3 09/28/2015 6:36pm 09/28/2015 7:07pm Sodium Level 135 mEq/L 133-145 09/28/2015 6:36pm 09/28/2015 7:07pm Potassium Level 3.5 mEq/L 3.5-5.1 09/28/2015 6:36pm 09/28/2015 7:07pm Chloride Level 110 mEq/L 98-116 09/28/2015 6:36pm 09/28/2015 7:07pm Carbon Dioxide Level 26 mEq/L 22-34 09/28/2015 6:36pm 09/28/2015 7: 07pm Anion Gap 2.5 L 6-13 09/28/2015 6:36pm 09/28/2015 7:07pm Calcium Level 8.5 mg/dL 8.2-10.6 09/28/2015 6:36pm 09/28/2015 7:07pm Total Protein 7.0 gm/dL 6.0-8.4 09/28/2015 6:36pm 09/28/2015 7:07pm Albumin 4.3 gm/dL 3.2-5.0 09/28/2015 6:36pm 09/28/2015 7:07pm Globulin 2.7 gm/dL 2.0-3.0 09/28/2015 6:36pm 09/28/2015 7:07pm Albumin/Globulin Ratio 1.6 1.4-2.4 09/28/2015 6:36pm 09/28/2015 7: 07pm Total Bilirubin 0.5 mg/dL 0.1-1.3 09/28/2015 6:36pm 09/28/2015 7:07pm Alkaline Phosphatase 37 U/L 35-125 09/28/2015 6:36pm 09/28/2015 7:07pm Aspartate Amino Transf (AST/SGOT) 20 U/L 5-40 09/28/2015 6:36pm 2015 7:07pm Alanine Aminotransferase (ALT/SGPT) 22 U/L 5-40 09/28/2015 6:36pm 09/27 7:07pm Lipase 29 U/L 8-57 09/28/2015 6:36pm 09/28/2015 7:07pm Urine RBC 0-1 /hpf NONE 03/11/2013 6:12pm 03/11/2013 7:00pm Urine WBC 1-3 /hpf NONE 03/11/2013 6:12pm 03/11/2013 7:00pm Urine Epithelial Cells MANY /lpf 03/11/2013 6:12pm 03/11/2013 7:00pm Urine Bacteria TRACE /hpf H NONE 03/11/2013 6:12pm 03/11/2013 7:00pm Urine Mucus 4+ /lpf NONE 03/11/2013 6:12pm 03/11/2013 7:00pm Urine Human Chorionic Gonadotropin NEGATIVE NEGATIVE 07/02/2013 11: 05pm 07/02/2013 11:26pm Procedures Procedure Status Date Provider(s) THER/PROPH/DIAG INJ IV PUSH Completed 02/13/14 JANETH JOY M.D. TX/PRO/DX INJ NEW DRUG ADDON Completed 02/13/14 JANETH JOY M.D. HYDRATE IV INFUSION ADD-ON Completed 02/13/14 JANETH JOY M.D. THER/PROPH/DIAG INJ SC/IM Completed 02/05/13 JANETH JOY M.D. THER/PROPH/DIAG INJ SC/IM Completed 02/05/13 JANETH JOY M.D. REMOVE IN/EX HEM GROUPS 2+ Completed 06/22/13 JOSE ADAM M.D. Hemorrhoidectomy (procedure) Completed 06/22/13 JOSE ADAM M.D. THER/PROPH/DIAG IV INF INIT Completed 07/02/13 CR,MÓNICA Apodaca M.D. TX/PRO/DX INJ NEW DRUG ADDON Completed 07/02/13 MEANS,MÓNICA Apodaca M.D. THER/PROPH/DIAG INJ SC/IM Completed 07/14/13 CR,MÓNICA Apodaca M.D. THER/PROPH/DIAG INJ IV PUSH Completed 10/29/13 VALERIA SOLIS M.D. TX/PRO/DX INJ NEW DRUG ADDON Completed 10/29/13 VALERIA SOLIS M.D. TX/PRO/DX INJ NEW DRUG ADDON Completed 10/29/13 VALERIA SOLIS M.D. THER/PROPH/DIAG INJ SC/IM Completed 10/30/13 MÓNICA CUMMINS M.D. Encounters Encounter Location Arrival/Admit Date Discharge/Depart Date Attending Provider Departed Emergency Room [facility] 09/28/15 6:04pm 7:45pm VALERIA SOLIS M.D. Registered Referred [facility] 03/29/15 6:15am ELIAS GALLO M.D. Departed Emergency Room [facility] 03/29/15 5:13am 6:14am ELIAS GALLO M.D. Departed Emergency Room [facility] 02/16/15 11:50am 12:16pm SCOTT FORD M.D. Departed Emergency Room [facility] 05/04/14 10:12pm 10:58pm MÓNICA HANKINS M.D. Registered Referred [facility] 03/13/14 9:23am MÓNICA CUMMINS M.D. Departed Emergency Room [facility] 02/13/14 10:24am 12:19pm JANETH JOY M.D. Registered Referred [facility] 11/08/13 12:54pm MÓNICA CUMMINS M.D. Registered Referred [facility] 10/30/13 11:58am MÓNICA CUMMINS M.D. Departed Clinic [facility] 10/30/13 11:55am 10/30/13 12: 12pm MÓNICA CUMMINS M.D. Departed Emergency Room [facility] 10/29/13 8:57am 10:44am VALERIA SOLIS M.D. Departed Emergency Room [place] [facility] 10/02/13 5:59pm 6:53pm ABDULAZIZ HOUSER M.D. Registered Referred [facility] 08/10/13 8:58am MÓNICA CUMMINS M.D. Office Visit [facility] 07/31/13 2:30pm JOSE ADAM M.D. Registered Practice [facility] 07/31/13 2:30pm JOSE ADAM M.D. Departed Emergency Room [facility] 07/14/13 12:14pm 1:25pm MÓNICA HANKINS M.D. Office Visit [facility] 07/10/13 3:15pm JOSE ADAM M.D. Departed Emergency Room [facility] 07/02/13 10:39pm 12:32am MÓNICA HANKINS M.D. Office Visit [facility] 06/29/13 1:30pm JOSE ADAM M.D. Departed Emergency Room [facility] 06/27/13 3:45pm 4:20pm VALERIA SOLIS M.D. Departed Surgical Day Care [facility] 06/22/13 9:07am 1:25pm JOSE ADAM M.D. Departed Emergency Room [place] [facility] 03/11/13 5:20pm 7:28pm VALERIA SOLIS M.D. Registered Referred [facility]ell Vyas [facility] 03/08/13 12:46pm MÓNICA CUMMINS M.D. Departed Emergency Room [facility] Natal[facility] 02/05/13 7:41pm 8:56pm JANETH JOY M.D. Recent Diagnosis
--- OUTSIDE RECORDS SUMMARY | 2016-09-06 11:28 | XMS REPORT ---
Author Author Deyanira Kebede Organization [employer] Address Unknown Phone Unavailable Care Team Providers Care Head Swamper Name Role Phone Deyanira Kebede CP Unavailable Allergies, Adverse Reactions, Alerts Substance Reaction Event Type Doxycycline Hyclate vomiting Drug Allergy Problems Problem Type Condition Code Onset Dates Condition Status Assessment Cervicalgia M54.2 Active Medications Medication Code System Code Instructions Start Date End Date Status Dosage Tizanidine HCl [facility] [address]-02 4 MG Orally every 8 hrs August 18, 2015 1 tablet as needed Nasonex [facility] [address]-71 50 MCG/ACT Nasally Once a day Dec 26, 2014 2 sprays in each nostril [place] [facility] [address]-69 7.5-325 MG Orally every 6-8 hrs PRN 1 tablet as needed Omeprazole [facility] [address]-16 20 MG Orally Once a day Apr 12, 2014 1 capsule Procedures Procedure Coding System Code Date FLU IMMUNIZE ORDER/ADMIN CPT-4 G8482 August 18, 2015 ESTAB PATIENTLEVEL III CPT-4 93669 August 18, 2015 Vital Signs Date/Time: August 18, 2015 Blood Pressure Systolic 102 mm Hg Cardiac Monitoring Heart Rate 91 /min Temperature 98.5 F BMI 23.69 Index Weight 138 lbs Height 64 in Blood Pressure Diastolic 70 mm Hg Oximetry 98 % Results No Known Results Summary Purpose [employer] Submission
--- NOTE | 2016-09-06 11:30 | ERPDOC ---
Departure Disposition Decision Date: September 06, 2016 Disposition Decision Time: 11:59 Disposition: 01 DISCHARGED HOME, SELF-CARE Impression Impression Impression: Primary Impression: Pain and swelling of left wrist Additional Impression: Postoperative pain of extremity Severity: Moderate Condition: Stable Seen By: Physician only Patient Instructions: Wrist Injury (ED) Problems/Meds/Labs Reviewed?: Yes Medications reviewed and manag: Yes Additional Instructions: Do not take any other NSAIDs with this medication, you may take this medication once a day Follow up care ordered?: Yes Mental Status: Alert, Oriented Scripts Meloxicam (Mobic) 15 Mg Tablet 1 TAB PO DAILY for 14 Days, #14 TAB Prov: KIRA CARDONA MD 09/06/16 HPI General Stated Complaint: LAEFT WRIST INJURY Time Seen by Provider: 11:30 Source: patient Exam Limitations: no limitations HPI Hand/Forearm Initial Comments Patient is a 25-year-old female, 5 weeks ago had a ganglion cyst removed by Dr. Arias, is now currently in treatment at [facility] for narcotic abuse. Patient having increasing pain in the wrist with swelling so [facility] to our emergency room for evaluation. On arrival patient complaining of 10/10 pain no known trauma Onset: Gradual, Getting worse Duration: other (3 days) Pain Scale: Now & Worst: 8/10 Location: left: wrist Allergies: Coded Allergies: doxycycline (Verified Allergy, Unknown, vomiting, 09/06/16) Past History Past Medical History Metabolic: hypothyroidism Psychological: drug abuse Surgical History Joint: other (ganglion cyst removal left wrist) Social History Tobacco Usage: smoke Alcohol Usage: rarely Drug Usage: daily IV Drug Use: No Sexuality: male partner Review of Systems Constitutional Constitutional: DENIES: fever ENMT Sinuses: DENIES: congestion, rhinorrhea Cardiovascular Cardiac: DENIES: chest pain, dyspnea on exertion Pulmonary Respiratory: DENIES: cough, dyspnea, sputum, tachypnea GI Upper Abdomen: DENIES: pain Lower Abdomen: DENIES: pain Musculoskeletal General: see HPI Integumentary Skin: see HPI Endocrine Endocrine: DENIES: heat/cold intolerance Hematologic/Lymphatic Hematologic/Lymphatic: DENIES: anemia Exam General General Nourishment: well nourished, well developed Vital Signs: RN Vital Signs have been reviewed: Yes Fastrak Hand/Forearm Hand/Forearm : Upper Extremity: Left Elbow: NOT FOUND: deformity, ecchymosis, erythema, swelling Forearm: NOT FOUND: ecchymosis, erythema, laceration, pronation intact, supination intact, swelling, tender Wrist: ROM intact, ecchymosis, swelling, tender, NOT FOUND: deformity, erythema, snuff box tenderness Hand: NOT FOUND: ecchymosis, erythema, swelling, tender Fingers: cap refill <2sec ea digit, soft touch intact, NOT FOUND: ecchymosis , erythema, impaired adduction, impaired extension, impaired flexion, impaired grasp, rotational deformity, swelling Radial Pulse: 3+ Ulnar Pulse: 3+ Neurologic RN Documented GCS Eye Opening: Verbal: Motor: Total: Differential Diagnoses Considering: Compartment Syndrome, Contusion, Dislocation, Fracture, Sprain, Strain Progress Results/Orders Orders Procedure Category Date Status Time Ketorolac (Toradol) PHA 09/06/16 Complete 11:45 Wrist Left 3-4 Views RAD 09/06/16 Resulted 11:33 Medications Current ED Medications Ketorolac Tromethamine (Toradol) 60 mg O ONCE IM Last administered on t 11:38; Start 09/06/16 at 11:45; Stop 09/06/16 at 11:46; Status DC Progress Progress X-rays are noncontributory, will treat patient with Mobic, do not take other NSAIDs along with this. Patient is to follow-up with Dr. Arias as scheduled on Xray Xray : Xray: Wrist L Interpretation: Normal, Reviewed Written Report KIRA CARDONA MD September 06, 2016 11:30
--- NOTE | 2016-09-06 11:32 | NUR ---
PHYSICIAN VISIT DR. CARDONA IN TO SEE PATIENT.
[2016-09-06] MEDS ORDERED: BUPR100T5 PO (11:39)
[2016-09-06] MEDS ORDERED: IBUP-1547 PO (11:39)
[2016-09-06] MEDS ORDERED: CYAN100085 PO (11:39)
[2016-09-06] MEDS ORDERED: MULT-933 PO (11:39)
[2016-09-06] MEDS ORDERED: BUPR1FIL7 (11:42)
[2016-09-06] MEDS ORDERED: KETOROLAC 60mg/2ml INJECTION IM ONE (11:45)
--- NOTE | 2016-09-06 11:59 | DI ---
Indication: ITS.REASON: postsurgical pain swelling PROCEDURE: WRIST LEFT 3-4 VIEWS: Encounter: Initial Comparison: None Findings: There is no acute fracture, dislocation or malalignment identified. Impression: No acute osseous abnormality. .
[2016-09-06] MEDS ORDERED: MELO15TA12 PO (12:01)
[2016-09-06 12:12] VITALS: BP 106/72; PULSE 82; RESP 16; O2SAT 98
--- OUTSIDE RECORDS SUMMARY | 2016-09-06 12:15 | XMS REPORT | Continuity of Care Document ---
Author Author [facility] Organization [facility] Address Unknown Phone Unavailable Care Team Providers Care Custom Stock Maker Name Role Phone MÓNICA CUMMINS M.D. Primary Care Physician [phone] Insurance Providers Payer Name Policy Number Subscriber Name Relationship [facility] [id number] Sindi Pressley 01 Self / Same As [...] F (96.0 - 99.9) Temperature (Calculated Celsius) 37.94512 degrees C Temperature Source Oral Temperature Source Oral Temp 98.2 degrees F (96.0 - 99.9) Temperature (Calculated Celsius) 36.67944 degrees C Pulse Pulse Rate (adult) 77 [...] COMMENT: 07SOURCE: URINE, CLEAN CATCH Urine Specific [place] July 02, 2013 11:05pm 1.025 1.005-1.030 SOURCE: [...] Encounters Encounter Location Date/Time Departed Emergency Room [facility] 02/13/14 10:24am Registered Clinic [facility] 10/30/13 11:55am Departed Emergency Room [facility] 10/29/13 8:57am Departed Emergency Room [facility] 10/02/13 5:59pm Office Visit [facility] 07/31/13 2:30pm Departed Emergency Room [facility] 07/14/13 12:14pm Office Visit [facility]BIE AD[facility] 07/10/13 3:15pm Departed Emergency Room [facility] 07/02/13 10:39pm Office Visit [facility] AD[facility] 06/29/13 1:30pm Departed Emergency Room [facility] 06/27/13 3:45pm Departed Emergency Room [place] [facility] 03/11/13 5:20pm Recent Diagnosis Diarrhea (acute) Gastroenteritis
--- OUTSIDE RECORDS SUMMARY | 2016-09-06 12:16 | XMS REPORT | Continuity of Care Document ---
Author Author [facility] Organization [facility] Address Unknown Phone Unavailable Care Team Providers Care Aircraft Engine Mechanic Name Role Phone MÓNICA CUMMINS M.D. Primary Care Physician [phone] Insurance Providers Payer Name Policy Number Subscriber Name Relationship [facility] [id number] Sindi Pressley 01 Self / Same As Patient Chief Complaint and Reason for Visit Chief Complaint Neck Pain Reason for Visit [id number] Problems Medical Problems Problem Onset Date Status [...] Location Date/Time Departed Emergency Room [facility] 10/02/13 5:59pm Office Visit ROBBIE ADAM 07/31/13 2:30pm Departed Emergency Room [facility] 07/14/13 12:14pm Office Visit ROBBIE ADAM 07/10/13 3:15pm Departed Emergency Room [facility] 07/02/13 10:39pm Office Visit [facility] AD[facility] 06/29/13 1:30pm Departed Emergency Room [facility] 06/27/13 3:45pm Departed Emergency Room [facility] 03/11/13 5:20pm Departed Emergency Room [facility] 02/05/13 7:41pm Recent Diagnosis
--- OUTSIDE RECORDS SUMMARY | 2016-09-06 12:16 | XMS REPORT | Continuity of Care Document ---
Author Author [facility] Organization [facility] Address Unknown Phone Unavailable Allergies Medications Problems [...] Status Pt. Type Provider Facility Loc./Unit Complaint [id number] 03/10/2013 13:24:00 2012 15:18:00 DIS Emergency Tristan Patel DO [facility] W.EDW [id number] 11/16/2012 05:09:00 2012 17:10:00 DIS Outpatient Daryl Gee DO [facility] W.4WH [id number] 11/15/2012 17:33:00 2012 21:25:00 DIS Emergency Antoinette ARANDA, Sheron [facility] W.EDN [id number] 08/15/2012 08:25:00 2012 10:43:00 DIS Emergency Ernesto ARANDA, Brett Thayer [facility] W.EDS [id number] 05/17/2012 22:43:00 2012 00:38:00 DIS Emergency Potter DO, [place] [facility] W.EDN [id number] 01/07/2012 05:06:00 2011 11:30:00 DIS Outpatient [facility] W.OPRA [id number] 01/03/2012 07:07:00 2011 07:07:00 DIS Outpatient [facility] W.POA [id number] 12/12/2011 16:44:00 2011 19:38:00 DIS Emergency Vidal ARANDA, Diego Apodaca [facility] W.EDS
--- OUTSIDE RECORDS SUMMARY | 2016-09-06 12:16 | XMS REPORT | Continuity of Care Document ---
Author Author [facility] Organization [facility] Address Unknown Phone Unavailable Care Team Providers Care Senior Quality Analyst Name Role Phone MÓNICA CUMMINS M.D. Primary Care Physician [phone] Insurance Providers Payer Name Policy Number Subscriber Name Relationship [facility] [id number] Sindi Pressley 01 Self / Same As [...] PRN 10 Qty for pain 10/02/13 Active Bwingfrvro-Cyqhswwdexkzs-Vwnok 1 Tab PO THREE TIMES A DAY [...] Location Date/Time Departed Emergency Room [facility] [place] 10/29/13 8:57am Departed Emergency Room [facility] 10/02/13 5:59pm Office Visit ROBBIE ADAM 07/31/13 2:30pm Departed Emergency Room [facility] 07/14/13 12:14pm Office Visit ROBBIE ADAM 07/10/13 3:15pm Departed Emergency Room [facility] 07/02/13 10:39pm Office Visit ROBBIE ADAM 06/29/13 1:30pm Departed Emergency Room [facility] 06/27/13 3:45pm Departed Emergency Room [facility] 03/11/13 5:20pm Departed Emergency Room [facility] [place] 02/05/13 7:41pm Recent Diagnosis Migraine
--- OUTSIDE RECORDS SUMMARY | 2016-09-06 12:17 | XMS REPORT | Continuity of Care Document ---
Author Author [facility] Organization [facility] Address Unknown Phone Unavailable Support Name Relationship Address Phone CR, MÓNICA Apodaca M.D. Caregiver [facility] [address] [facility] [place] [address] MÓNICA CUMMINS M.D. Caregiver [address] [place] [address] DAHLIA CASTILLO Next Of Kin [address] [place] [address] [place] Insurance Providers Payer Name Policy Number Subscriber Name Relationship [facility] [id number] Sindi Pressley 01 Self / Same As [...] F (96.0 - 99.9) Temperature (Calculated Celsius) 36.86462 degrees C Temperature Source Oral Temperature Source Oral Temp 98.2 degrees F (96.0 - 99.9) Temperature (Calculated Celsius) 36.30336 degrees C Pulse Pulse Rate (adult) 77 [...] 2.7 pg/mL 1.7-3.7 T3 Free performed at [facility], [address] [place], [place] [address]Medical Director Saud Alcocer MD Thyroperoxidase Antibody March 13, 2014 9:30am <3 IU/mL 0-6 Thyroperoxidase Ab (TPO) performed at [facility], [facility] [place] [address] Top Steep Tender Saud Alcocer MD Free Thyroxine March 13, [...] COMMENT: 07SOURCE: URINE, CLEAN CATCH Urine Specific [place] July 02, 2013 11:05pm 1.025 1.005-1.030 SOURCE: [...] Encounters Encounter Location Date/Time Departed Emergency Room [facility] 05/04/14 10:12pm Departed Emergency Room [facility] 02/13/14 10:24am Registered Clinic [facility] 10/30/13 11:55am Departed Emergency Room [facility] 10/29/13 8:57am Departed Emergency Room [facility] 10/02/13 5:59pm Office Visit [facility] 07/31/13 2:30pm Departed Emergency Room [facility] 07/14/13 12:14pm Office Visit [facility]BIE ADAM 07/10/13 3:15pm Departed Emergency Room [facility] 07/02/13 10:39pm Office Visit ROBBIE ADAM 06/29/13 1:30pm Departed Emergency Room [facility] 06/27/13 3:45pm Recent Diagnosis
--- OUTSIDE RECORDS SUMMARY | 2016-09-06 12:18 | XMS REPORT | Continuity of Care Document ---
Author Author [facility] Organization [facility] Address Unknown Phone Unavailable Care Team Providers Care Animal Shelter Manager Name Role Phone MÓNICA CUMMINS M.D. Primary Care Physician [phone] Insurance Providers Payer Name Policy Number Subscriber Name Relationship [facility] [id number] Sindi Pressley 01 Self / Same As Patient Problems Medical Problems Problem Onset Date Status Rectal pain s/p recent hemorrhoidectomy Unknown Active Postoperative visit Unknown Active Abdominal pain Unknown Active Cervical pain (neck) Unknown Active Medications Medication Dose Route Sig Days/Qty Instructions Order Date Discontinued Date Status Ciprofloxacin Hcl 500 Mg PO TWICE A DAY 10 Days 03/11/13 03/22/13 Discontinued Iauvwadndo-Dxcraigpdbliw-Xiiaz 1 Tab PO THREE TIMES A DAY [...] - 99.9) 10/30/2013 12:10pm Temperature (Calculated Celsius) 36.16531 degrees C 10/30/2013 12:10pm Temperature Source Oral [...] COMMENT: 07SOURCE: URINE, CLEAN CATCH Urine Specific [place] July 02, 2013 11:05pm 1.025 1.005-1.030 SOURCE: [...] M.D. Encounters Encounter Location Date/Time Registered Clinic [facility] 10/30/13 11:55am Departed Emergency Room [facility] 10/29/13 8:57am Departed Emergency Room [facility] 10/02/13 5:59pm Office Visit [facility] AD[facility] 07/31/13 2:30pm Departed Emergency Room [facility] 07/14/13 12:14pm Office Visit [facility]BIE AD[facility] 07/10/13 3:15pm Departed Emergency Room [facility] 07/02/13 10:39pm Office Visit ROBBIE ADAM 06/29/13 1:30pm Departed Emergency Room [facility] 03/05/14 3:45pm Departed Emergency Room [facility] 03/11/13 5:20pm [facility]
== END 2016-09-06 12:15 | disposition home or self-care (01) ==
LOC: ED 11:20
DX: G89.18 Other acute postprocedural pain (principal); M25.532 Pain in left wrist; M25.432 Effusion, left wrist
CPT/HCPCS: 73110; 96372; 99283; J1885